=== PATIENT | female | born 1965 | race Caucasian/White ===

== ENCOUNTER 2024-07-03 12:59 | Outpatient (OUT) | payer OTHER, SELFPAY ==
--- NOTE | 2024-07-03 13:12 | ECG_ITS ---
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
[2024-07-03 14:27] LABS: Anion Gap 10.1; BUN Creatinine Ratio 15.9; Carbon Dioxide 30.6 mmol/L (21.0-32.0); Chloride 104 mmol/L (98-107); Estimated GFR (African America >60 (>=60 mL/min/1.73m^2); Estimated GFR (Non-African Ame >60 (>=60 mL/min/1.73m^2); Glucose 187 mg/dL (74-106); Potassium 3.7 mmol/L (3.5-5.1); Sodium 141 mmol/L (136-145)
== END 2024-07-03 13:00 | disposition home or self-care (01) ==
LOC: PST 13:03
PROVIDERS: PCP Internal Medicine; Visit Provider Obstetrics & Gynecology
DX: Z01.810 Encounter for preprocedural cardiovascular examination (principal); Z01.812 Encounter for preprocedural laboratory examination; N95.0 Postmenopausal bleeding; D25.9 Leiomyoma of uterus, unspecified
CPT/HCPCS: 36415; 80048; 93005

== ENCOUNTER 2024-07-17 06:17 | Day surgery (SDC) | payer OTHER, SELFPAY ==
[2024-07-03 13:53] VITALS: BP 138/84; PULSE 89; TEMP 36.6; O2SAT 97; BMI 32.3
--- OUTSIDE RECORDS SUMMARY | 2024-07-17 06:20 | XMS_ITS | CCD ---
Author Organization [facility] Inform ion [facility] Care Team Providers Care Director Clinical Pharmacology Name Role Phone AKIKO VILLA Attending Unavailable AKIKO VILLA Consulting Unavailable AKIKO VILLA Admitting Unavailable Daisy BARBACK-CLAIMS AGENT RIGHT OF WAY, Akiko Dumas Primary Care Provider Michelet BARBACK-GRILL COOKDickson Primary Care Provid er DICKSON TAFOYA Referring Unavailable TAFOYA, DICKSON Reyes Primary Care Unavailable TAFOYADICKSON Referring Unavailable TAFOYA, DICKSON Reyes Primary Care Unavailable CLAU HAWKINS Attending Unavailable TAFOYADICKSON Referring Unavailable TAFOYA, DICKSON Reyes Primary Care Unavailable TAFOYADICKSON Attending Unavailable TAFOYADICKSON Referring Unavailable TAFOYA, DICKSON Reyes Primary Care Unavailable MILTON BRIZUELA Attending Unavailable TAFOYADICKSON Referring Unavailable TAFOYA, DICKSON J Primary Care Unavailable TAFOYA, DICKSON Reyes Attending Unavailable TAFOYA, DICKSON Reyes Referring Unavailable TAFOYA, DICKSON J Primary Care Unavailable TAFOYA, DICKSON Reyes Attending Unavailable ATFOYA, DICKSON J Referring Unavailable TAFOYA, DICKSON Eric Primary Care Unavailable TAFOYA, DICKSON J Referring Unavailable TAFOYA, DICKSON Eric Primary Care Unavailable ARIANNA FLYNN Attending Unavailable DICKSON TAFOYA Referring Unavailable TAFOYADICKSON Primary Care Unavailable Milton Brizuela MD Primary Care Provider TOI VALADEZ Attending Unavailable TOI VALADEZ Attending Unavailable DICKSON NAQVI Referring Unavailable DICKSON NAQVI Attending Unavailable DICKSON NAQVI Referring Unavailable MILTON BRIZUELA Referring Unavailable DICKSON NAQVI Attending Unavailable CLAU DE LA CRUZ Attending Unavailable CLAU DE LA CRUZ Referring Unavailable DICKSON TAFOYA Primary Care Unavailable Medications Current Medications Medication Drug Class(es) Dates Sig (Normalized) Sig (Original) amLODIPine 10 mg oral tablet (20 sources) Dihydropyridine Calcium Channel Mckinley Start: 02-11-2024 take 1 tablet by mouth in the morning amLODIPine (NORVASC) 10 mg tablet Indications: Essential hypertension Take 1 tablet (10 mg total) by mouth in the morning. 90 tablet 1 02/11/2024 Active Start: 10-31-2022 End: 07-23-2023 take 1 tablet by mouth in the morning amLODIPine (NORVASC) 10 mg tablet Take 1 tablet (10 mg total) by mouth in the morning. 90 tablet 1 07/24/2023 Active atorvastatin 40 mg oral tablet (20 sources) HMG-CoA Reductase Inhibitor Start: 12-04-2023 End: 06-08-2024 atorvastatin (LIPITOR) 40 mg tablet Indications: Hyperlipidemia, unspecified hyperlipidemia type TAKE 1 TABLET IN THE MORNING 90 tablet 2 06/08/2024 Active Start: 11-01-2022 End: 09-23-2023 take 1 tablet by mouth in the morning atorvastatin (LIPITOR) 20 mg tablet Indications: Hyperlipidemia, unspecified hyperlipidemia type Take 1 tablet (20 mg total) by mouth in the morning. 90 tablet 1 09/24/2023 Active citalopram 40 mg oral tablet (20 sources) Serotonin Reuptake Inhibitor Start: 01-09-2024 End: 04-21-2024 citalopram (CeleXA) 40 mg tablet Indications: Reactive depression TAKE 1 TABLET IN THE MORNING 90 tablet 1 04/21/2024 Active Start: 06-10-2023 take 1 tablet by dominguez th once daily in the morning citalopram (CeleXA) 20 mg tablet TAKE ONE TABLET BY MOUTH EVERY MORNING 90 tablet 1 06/10/2023 Active Start: 03-13-2023 End: 06-28-2023 take 1 tablet by mouth once daily in the morning citalopram (CeleXA) 40 mg tablet TAKE ONE TABLET BY MOUTH EVERY MORNING 90 tablet 1 06/28/2023 Active dapagliflozin 5 mg oral tablet (13 sources) Sodium-Glucose Cotransporter 2 Inhibitor Start: 03-19-2023 take 1 tablet by mouth in the morning dapagliflozin propanediol (FARXIGA) 5 mg tablet Take 1 tablet (5 mg total) by mouth in the morning. 30 tablet 5 03/19/2023 Active ergocalciferol 1.25 mg oral capsule (20 sources) Provitamin D2 Compound Start: 02-10-2024 take 1 capsule by mouth every week ergocalciferol (Vitamin D2) 1.25 MG (28348 UT) capsule Take 50,000 Units by mouth 1 (one) time per week 02/10/2024 Active Start: 10-31-2022 End: 03-03-2024 take 1 capsule by mouth every week ergocalciferol (DRISDOL) 1,250 mcg (50,000 unit) capsule Indications: Vitamin D deficiency Take 1 capsule (50,000 Units total) by mouth once a week. 12 capsule 3 03/03/2024 Active famotidine 20 mg oral tablet (20 sources) Histamine-2 Receptor Antagonist Start: 02-11-2024 End: 06-08-2024 famotidine (PEPCID) 20 mg tablet TAKE 1 TABLET IN THE MORNING AND 1 TABLET BEFOREBEDTIME 180 tablet 1 06/08/2024 Active Start: 01-30-2023 End: 09-23-2023 take 1 tablet by mouth in the morning, then take 1 tablet by mouth at bedtime famotidine (PEPCID) 20 mg tablet Take 1 tablet (20 mg total) by mouth in the morning and 1 tablet (20 mg total) before bedtime. 180 tablet 1 09/24/2023 Active fexofenadine hydrochloride 180 mg oral tablet (13 sources) Histamine-1 Receptor Antagonist Start: 02-04-2024 take 1 tablet by mouth in the morning fexofenadine (NATHANAEL) 180 mg tablet Indications: Seasonal allergic rhinitis due to pollen , Dysfunction of left eustachian tube Take 1 tablet (180 mg total) by mouth in the morning. 30 tablet 11 02/04/2024 Active fluconazole 150 mg oral tablet (6 sources) Azole Antifungal Start: 05-13-2024 End: 05-20-2024 take 1 tablet by mouth once fluconazole (DIFLUCAN) 150 mg tablet Take 1 tablet (150 mg total) by mouth every third day for 3 doses. 3 tablet 05/13/2024 05/20/2024 Active Start: 04-20-2024 End: 04-23-2024 take 1 tablet by mouth in the morning fluconazole (DIFLUCAN) 150 mg tablet Indications: Yeast vaginitis Take 1 tablet (150 mg total) by mouth in the morning for 3 days. 3 tablet 04/20/2024 04/23/2024 Active Start: 06-25-2023 End: 06-28-2023 take 1 tablet by mouth in the morning fluconazole (DIFLUCAN) 100 mg tablet Take 1 tablet (100 mg total) by mouth in the morning for 3 days. 3 tablet 0 06/25/2023 06/28/2023 Active fluticasone propionate 0.05 mg/actuat metered dose nasal spray (13 sources) Corticosteroid Start: 02-04-2024 take 2 spray(s) nasal route in the morning fluticasone propionate (FLONASE) 50 mcg/actuation nasal spray Indications: Seasonal allergic rhinitis due to pollen , Dysfunction of left eustachian tube Administer 2 sprays into each nostril in the morning. 16 g 11 02/04/2024 Active 3 ml insulin degludec 200 unt/ml pen injector (20 sources) Insulin Analog Start: 08-29-2022 insulin deglud ec (TRESIBA) 200 unit/mL (3 mL) insulin pen Inject 38 Units under the skin in the morning. 9 mL 1 08/29/2022 Active insulin degludec (Tresiba FlexTouch) 100 UNIT/ML injection Inject 38 Units under the skin at bedtime Active levothyroxine sodium 0.15 mg oral tablet (20 sources) l-Thyroxine Start: 11-12-2023 End: 04-21-2024 SYNTHROID 150 mcg tablet Indications: Acquired hypothyroidism TAKE 1 TABLET EVERY MORNING 90 tablet 1 04/21/2024 Active Start: 07-24-2023 take 1 tablet by dominguez th in the morning levothyroxine (SYNTHROID, LEVOTHROID) 150 MCG tablet Take 1 tablet (150 mcg total) by mouth in the morning. 45 tablet 1 07/24/2023 Active Start: 05-06-2023 End: 07-23-2023 take 0.5 tablet by mouth once daily levothyroxine (SYNTHROID, LEVOTHROID) 150 MCG tablet TAKE 1/2 TABLET BY MOUTH DAILY 45 tablet 1 05/06/2023 07/23/2023 Discontinued (Reorder) losartan potassium 100 mg oral tablet (20 sources) Angiotensin 2 Receptor Mckinley Start: 02-11-2024 take 1 tablet by mouth in the morning losartan (COZAAR) 100 mg tablet Indications: Essential hypertension Take 1 tablet (100 mg total) by mouth in the morning. 90 tablet 1 02/11/2024 Active Start: 05-06-2023 End: 07-23-2023 take 1 tablet by mouth in the morning losartan (COZAAR) 100 mg tablet Take 1 tablet (100 mg total) by mouth in the morning. 90 tablet 1 07/24/2023 Active meloxicam 15 mg oral tablet (20 sources) Nonsteroidal Anti-inflammatory Drug Start: 12-18-2023 End: 04-21-2024 meloxicam (MOBIC) 15 mg tablet TAKE 1 TABLET EVERY MORNING 90 tablet 1 04/21/2024 Active Start: 04-27-2023 End: 09-04-2023 take 1 tablet by mouth in the morning meloxicam (MOBIC) 15 mg tablet Take 1 tablet (15 mg total) by mouth in the morning. 90 tablet 1 09/05/2023 Active metFORMIN hydrochloride 1000 mg oral tablet (20 sources) Biguanide Start: 03-26-2023 End: 05-05-2024 take 1 tablet by mouth in the morning, then take 1 tablet by mouth at mealtime metFORMIN (GLUCOPHAGE) 1000 mg tablet Indications: Type 2 diabetes mellitus without complication, with long-term current use of insulin ([facility]) Take 1 tablet (1,000 mg total) by mouth in the morning and 1 tablet (1,000 mg total) in the evening. Take with meals. 60 tablet 05/05/2024 Active nystatin [id number] unt/ml / triamcinolone acetonide 1 mg/ml topical cream (14 sources) Polyene Antifungal, Corticosteroid Start: 05-16-2022 End: 03-03-2024 nystatin-triamcino lone (MYCOLOG II) cream Apply 1 application topically in the morning and 1 application before bedtime. 30 g 05/16/2022 03/03/2024 Discontinued (Therapy completed) phentermine hydrochloride 37.5 mg oral tablet (20 sources) Sympathomimetic Amine Anorectic Start: 12-03-2023 End: 03-03-2024 take 31-31.9 tablets by mouth once daily before breakfast phentermine (ADIPEX-P) 37.5 mg tablet Indications: Class 1 obesity due to excess calories without serious comorbidity with body mass index (BMI) of 31.0 to 31.9 in adult Take 1 tablet (37.5 mg total) by mouth every morning before breakfast. 30 tablet 12/03/2023 03/03/2024 Discontinued (Therapy completed) Start: 05-07-2023 End: 06-10-2023 take 31-31.9 tablets by mouth once daily before breakfast phentermine (ADIPEX-P) 37.5 mg tablet Indications: Class 1 obesity due to excess calories with serious comorbidity and body mass index (BMI) of 31.0 to 31.9 in adult TAKE ONE TABLET BY MOUTH EVERY MORNING BEFORE BREAKFAST 30 tablet 0 06/10/2023 Active 72 hr scopolamine 0.0139 mg/hr transdermal system (14 sources) Anticholinergic Start: 10-22-2023 End: 03-03-2024 apply 1 dose transdermal route once daily scopolamine (TRANSDERM-SCOP) 1 mg/3 days Indications: Motion sickness, subsequent encounter Place 1 patch on the skin every third day. 4 patch 1 10/22/2023 03/03/2024 Discontinued (Therapy completed) Start: 02-21-2022 apply 1 dose transde rmal route once daily scopolamine (TRANSDERM-SCOP) 1 mg/3 days Indications: Motion sickness, subsequent encounter Place 1 patch on the skin every third day. 4 patch 1 02/21/2022 Active semaglutide (OZEMPIC) 0.25 m g or 0.5 mg (2 mg/3 mL) pen injector (4 sources) Start: 12-24-2023 End: 04-20-2024 semaglutide (OZEMPIC) 0.25 m g or 0.5 mg (2 mg/3 mL) pen injector Indications: Type 2 diabetes mellitus without complication, with long-term current use of insulin ([facility]) Inject 0.5 mg under the skin every 7 days. 3 mL 12/24/2023 04/20/2024 Discontinued (Therapy completed) Start: 12-24-2023 semaglutide (O ZEMPIC) 0.25 mg or 0.5 mg (2 mg/3 mL) pen injector Indications: Type 2 diabetes mellitus without complication, with long-term current use of insulin ([facility]) Inject 0.5 mg under the skin every 7 days. 3 mL 12/24/2023 Active semaglutide (OZEMPIC) 1 mg/d ose (4 mg/3 mL) pen injector (10 sources) Start: 04-20-2024 semaglutide (O ZEMPIC) 1 mg/dose (4 mg/3 mL) pen injector Indications: Type 2 diabetes mellitus without complication, with long-term current use of insulin ([facility]) Inject 1 mg under the skin every 7 days. 3 mL 04/20/2024 Active semaglutide (OZEMPIC) 2 mg/d ose (8 mg/3 mL) pen injector (14 sources) Start: 07-01-2023 semaglutide (O ZEMPIC) 2 mg/dose (8 mg/3 mL) pen injector Indications: Type 2 diabetes mellitus without complication, with long-term current use of insulin ([facility]) Inject 2 mg under the skin every 7 days. 12 mL 3 07/01/2023 Active Start: 06-25-2023 semaglutide (O ZEMPIC) 2 mg/dose (8 mg/3 mL) pen injector Indications: Type 2 diabetes mellitus without complication, with long-term current use of insulin ([facility]) Inject 2 mg under the skin every 7 days. 3 mL 2 06/25/2023 Active Start: 03-19-2023 End: 06-25-2023 semaglutide (OZEMPIC) 2 mg/d ose (8 mg/3 mL) pen injector Inject 2 mg under the skin every 7 days. 0 03/19/2023 06/25/2023 Discontinued (Formulary change) Start: 03-19-2023 semaglutide (O ZEMPIC) 2 mg/dose (8 mg/3 mL) pen injector Inject 2 mg under the skin every 7 days. 0 03/19/2023 Active Semaglutide,0.25 or 0.5MG/DO S, (Ozempic, 0.25 or 0.5 MG/DOSE,) 2 MG/3ML solution pen-injector (10 sources) Start: 12-24-2023 Semaglutide,0. 25 or 0.5MG/DOS, (Ozempic, 0.25 or 0.5 MG/DOSE,) 2 MG/3ML solution pen-injector Inject 0.5 mg under the skin once a week 12/24/2023 Active Completed/Discontinued Medications Medication Drug Class(es) Dates Sig (Normalized) Sig (Original) WEGOVY 2.4 mg/0.75 mL pen injector (5 sources) Start: 04-15-2023 End: 06-25-2023 inject 0.75 mL by subcutaneous injection every week WEGOVY 2.4 mg/0.75 mL pen injector Inject 0.75 mL (2.4 mg total) under the skin once a week. 0 04/15/2023 06/25/2023 Discontinued (Formulary change) Start: 04-15-2023 inject 0.75 mL by crabtree bcutaneous injection every week WEGOVY 2.4 mg/0.75 mL pen injector Inject 0.75 mL (2.4 mg total) under the skin once a week. 0 04/15/2023 Active Problems Active Problems Problem Classification Problem Date Documented Date Episodic/Chronic Diabetes mellitus without complication (20 sources) Diabetes mellitus; Translations: [Type 2 diabetes mellitus without complications] Onset: 07-16-2022 07-16-2022 Chronic Disorders of lipid metabolism (20 sources) Hyperlipidemia; Translations: [Hyperlipidemia, unspecified] 07-16-2022 Chronic Essential hypertension (20 sources) Essential hypertension; Translations: [Essential (primary) hypertension] 07-16-2022 Chronic Immunizations and screening for infectious disease (4 sources) Contact with and (suspected) exposure to other viral communicable diseases; Translations: [CONTCT EXPS OTH VIRL COMMUNICABL DZ] Onset: 05-09-2020 Episodic Menopausal disorders (6 sources) Postmenopausal bleeding; Translations: [Postmenopausal bleeding] 04-07-2024 Chronic Mood disorders (20 sources) Reactive depression (situational); Translations: [Major depressive disorder, single episode, unspecified] Onset: 05-11-2022 05-11-2022 Chronic Mycoses (2 sources) Candidiasis of vagina; Translations: [Yeast vaginitis] 06-25-2023 Episodic Nutritional deficiencies (20 sources) Vitamin D deficiency; Translations: [Vitamin D deficiency, unspecified] Onset: 03-03-2024 07-16-2022 Chronic Other and unspecified benign neoplasm (2 sources) Leiomyoma; Translations: [Benign neoplasm of connective and other soft tissue, unspecified] 04-07-2024 Episodic Other ear and sense organ disorders (1 source) Unspecified hearing loss, right ear; Translations: [Unspecified hearing loss, right ear] Onset: 02-04-2024 Chronic Other ear and sense organ disorders (2 sources) Mixed conductive and sensorineural hearing loss, unilateral, left ear with restricted hearing on the contralateral side; Translations: [Mixed conductive and sensorineural hearing loss, unilateral, left ear with restricted hearing on the contralateral side] Onset: 02-04-2024 Chronic Other ear and sense organ disorders (1 source) Hearing loss Onset: 02-04-2024 Chronic Other ear and sense organ disorders (1 source) Mixed conductive AND sensorineural hearing loss; Translations: [Mixed conductive and sensorineural hearing loss, unilateral, left ear with restricted hearing on the contralateral side] 03-31-2024 Chronic Other ear and sense organ disorders (1 source) Ear problem Onset: 02-04-2024 Episodic Other ear and sense organ disorders (2 sources) Ear sensations - finding; Translations: [Other specified disorders of ear, bilateral] 03-31-2024 Episodic Other ear and sense organ disorders (1 source) Other specified disorders of ear, bilateral; Translations: [Other specified disorders of ear, bilateral] Onset: 03-31-2024 Episodic Other nutritional; endocrine; and metabolic disorders (1 source) Other obesity due to excess calories; Translations: [Other obesity due to excess calories] Onset: 11-12-2023 Chronic Other nutritional; endocrine; and metabolic disorders (1 source) Body mass index (BMI) 31.0-31.9, adult; Translations: [Body mass index (BMI) 31.0-31.9, adult] Onset: 11-12-2023 Chronic Other nutritional; endocrine; and metabolic disorders (1 source) Obesity caused by energy imbalance; Translations: [Other obesity due to excess calories] 06-04-2023 Chronic Other screening for suspected conditions (not mental disorders or infectious disease) (3 sources) Encounter for screening for osteoporosis; Translations: [Abnormal electrocardiogram [ECG] [EKG]] Onset: 11-22-2023 07-14-2024 Episodic Other upper respiratory disease (2 sources) Allergic rhinitis due to pollen; Translations: [Allergic rhinitis due to pollen] Onset: 02-04-2024 Chronic Other upper respiratory disease (1 source) Allergic rhinitis due to pollen; Translations: [Allergic rhinitis due to pollen] 03-31-2024 Chronic Otitis media and related conditions (6 sources) Unspecified Eustachian tube disorder, left ear; Translations: [Disorder of left Eustachian tube] Onset: 02-04-2024 03-31-2024 Episodic Prolapse of female genital organs (2 sources) Uterine prolapse; Translations: [Uterovaginal prolapse, unspecified] 04-07-2024 Chronic Thyroid disorders (3 sources) Acquired hypothyroidism; Translations: [Hypothyroidism, unspecified] Onset: 11-12-2023 03-03-2024 Chronic Thyroid disorders (20 sources) Disorder of thyroid gland; Translations: [Disorder of thyroid, unspecified] 07-16-2022 Episodic Unclassified (1 source) Eustachian tube dysfunction Onset: 03-31-2024 Unclassified (1 source) Weight Check Onset: 12-03-2023 Past or Other Problems Problem Classification Problem Date Documented Da te Episodic/Chronic Mood disorders (20 sources) Mood disorders Onset: 03-18-2023 Resolved: 03-03-2024 03-18-2023 Other aftercare (2 sources) terminal gauger supervisor (current) use of insulin; Translations: [terminal gauger supervisor (current) use of insulin] Onset: 07-16-2022 Episodic Residual codes; unclassified (1 source) Asymptomatic menopausal state; Translations: [Asymptomatic menopausal state] Onset: 11-22-2023 Episodic Unclassified (20 sources) Onset: 03-18-2023 Resolved: 03-03-2024 03-18-2023 Results Test Name Value Interpretation Reference Range Facility ALL BASIC METABOLIC PANELon 07-03-2024 Anion gap [Moles/Vol] 10.1 mmol/L [facility] Calcium [Mass/Vol] 9 mg/dL 8.5 - 10. 1 mg/dL [facility] Chloride [Moles/Vol] 104 mmol/L 98 - 10 7 mmol/L [facility] CO2 [Moles/Vol] 30.6 mmol/L 21.0 - 32.0 mmol/L [facility] Creatinine [Mass/Vol] 0.88 mg/dL 0.55 - 1.02 mg/dL [facility] GFR/1.73 sq M.predicted CKD-EPI (S/P/Bld) [Vol rate/Area] >60 >=60 mL/min/1.73m 2 [facility] Glucose [Mass/Vol] 187 mg/dL High 74 - 106 mg/dL [facility] Interpretation and review of laboratory results Abnormal [facility] Potassium [Moles/Vol] 3.7 mmol/L 3.5 - 5.1 mmol/L [facility] Sodium [Moles/Vol] 141 mmol/L 136 - 145 mmol/L [facility] TBH EGFR-NON AF MALAWIAN >60 >=60 mL/min/1.73m 2 [facility] Urea nitrogen [Mass/Vol] 14 mg/dL 7.0 - 18.0 mg/dL [facility] Urea nitrogen/Creatinine [Mass ratio] 15.9 mg/mg [facility] ECG 12-LEADon 07-03-2024 [place] [address] Electrocardiograph Report Signed Patient: DANNY AHMADI MR#: [id number] : 1965 Acct:[id number] Age/Sex: 58 / F ADM Date: 07/03/24 Loc: [facility] Attending Dr: Toi Valadez D.O. Ordering Physician: Toi Valadez D.O. Date of Service: 07/03/24 Procedure(s): ECG 12 lead Accession Number(s): [id number] cc: [facility] Test Date: 2024-07-03 Pat Name: DANNY AHMADI Department: Room: - Gender: Female Spring Tester: : 1965 Requested By: CLAU DE LA CRUZ Order Number: [id number] Reading MD: JERRELL MIGUEL Measurements Intervals Harold Rate: 88 P: 56 HI: 211 QRS: -29 QRSD: 111 T: 64 QT: 396 QTc: 480 Interpretive Statements SINUS RHYTHM WITH FIRST DEGREE AV BLOCK MODERATE VOLTAGE CRITERIA FOR LVH, CONSIDER NORMAL VARIANT [MEETS CRITERIA IN ONE OF: R(aVL), S(V1), R(V5), R(V5/V6)+S(V1)] POSSIBLE SEPTAL MYOCARDIAL INFARCTION [30 ms Q WAVE IN V1/V2], PROBABLY OLD No previous ECG available for comparison Electronically Signed On 07-03-2024 18:16:53 EST by JERRELL MIGUEL Dictated By: Jerrell Miguel D.O. Signed By: 07/03/241816 DD/ 58 TD/TT: Heat And [employer] Insulator Helper: [facility] Radiology, Radiologist, - 07/03/2024 [place] [address] Electrocardiograph Report Signed Patient: DANNY AHMADI MR#: [id number] : 1965 Acct:[id number] Age/Sex: 58 / F ADM Date: 07/03/24 Loc: PST Attending Dr: Toi Valadez D.O. Ordering Physician: Toi Valadez D.O. Date of Service: 07/03/24 Procedure(s): ECG 12 lead Accession Number(s): [id number] cc: [facility] Test Date: 2024-07-03 Pat Name: DANNY AHMADI Department: Room: - Gender: Female Spring Tester: : 1965 Requested By: CLAU DE LA CRUZ Order Number: [id number] Reading MD: JERRELL MIGUEL Measurements Intervals Harold Rate: 88 P: 56 HI: 211 QRS: -29 QRSD: 111 T: 64 QT: 396 QTc: 480 Interpretive Statements SINUS RHYTHM WITH FIRST DEGREE AV BLOCK MODERATE VOLTAGE CRITERIA FOR LVH, CONSIDER NORMAL VARIANT [MEETS CRITERIA IN ONE OF: R(aVL), S(V1), R(V5), R(V5/V6)+S(V1)] POSSIBLE SEPTAL MYOCARDIAL INFARCTION [30 ms Q WAVE IN V1/V2], PROBABLY OLD No previous ECG available for comparison Electronically Signed On 07-03-2024 18:16:53 EST by JERRELL MIGUEL Dictated By: Jerrell Miguel D.O. Signed By: 07/03/241816 DD/ 58 TD/TT: [employer] Insulator Helper: [facility] Radiology Study observation (narrative) [facility] ECG 12-LEADOrdered By: Radio logist Radiology on 07-03-2024 [facility] [employer] Work Phone: Cytology Cervical or vaginal smear or scraping studyOrdered By: Fern Das on 04-08-2024 [facility] US PELVIS TRANSVAGINALon US PELVIS TRANSVAGINAL EXAM: Pelvic Ultrasound, Transvaginal. REASON FOR EXAM: PMB. TECHNIQUE: An endovaginal exam was performed, including color Doppler. FINDINGS: Myometrium: An isoechoic mass at the uterine fundus measures 2.3 x 1.8 x 1.4 cm. Endometrium: Normal thickness and echogenicity without fluid. Cervix: Unremarkable. Cul-de-sac: Trace free fluid present. Right Ovary: Obscured by overlying bowel gas. Left Ovary: Obscured by overlying bowel gas. Measurements: Uterus: 7.63 x 5.25 x 3.22 cm Right Ovary: Obscured Left Ovary: Obscured IMPRESSION, Endovaginal Pelvic Ultrasound: Myometrial fibroid of the uterus. Ovaries obscured. *This report is generated using voice recognition reporting ([employer]). On occasion Fredioe erroneously drops words from the report or replaces the spoken word with similar sounding words. Please call with any questions/concerns regarding this report.* Dictated and transcribed 04/08/24/dpd This report has been electronically signed and approved by the interpreting radiologist. Normal Not Available POCT Hemoglobin A1con 2023 HbA1c (Bld) [Mass fraction] 7.2 % Abnormal 4 - 7 % [employer] Interpretation and review of laboratory results Abnormal [facility] BI MAMMOGRAM SCREENING TOMOS YNTHESIS BILATERALon 11-22-2023 BI MAMMOGRAM SCREENING TOMOSYNTHESIS BILATERAL This is a summary report. The complete report is available in the patient's medical record. If you cannot access the medical record, please contact the sending organization for a detailed fax or copy. EXAMINATION: BI MAMMOGRAM SCREENING TOMOSYNTHESIS BILATERAL CLINICAL HISTORY:Routine screening COMPARISON: January 26, 2022 RESULT: Density: Scattered fibroglandular density [2] There is no suspicious mass, asymmetry, architectural distortion, or calcification. Typically benign calcifications. Overall appearance stable. IMPRESSION: BIRADS 2 - Benign Follow-up: Routine Screening Mamm Board Certified Radiologists. Accredited by the ACR and FDA. MAMMOGRAPHY IS VERY IMPORTANT TO YOUR HEALTH. THE [employer] GUIDELINES RECOMMEND THAT WOMEN 40 YEARS OF AGE AND OLDER SHOULD HAVE A MAMMOGRAM EVERY YEAR. A REMINDER LETTER WILL BE SENT AT THE APPROPRIATE TIME. THIS FACILITY UTILIZES A REMINDER SYSTEM TO ENSURE ALL PATIENTS RECEIVE REMINDER NOTIFICATIONS AT THE APPROPRIATE TIME BASED ON THE RECOMMENDATIONS OF THIS EXAM. THIS INCLUDES REMINDERS FOR ROUTINE SCREENING MAMMOGRAMS, DIAGNOSTIC MAMMOGRAMS IN WHICH THE PATIENT IS ASKED TO RETURN FOR ADDITIONAL VIEWS, OR OTHER BREAST IMAGING INTERVENTIONS WHEN APPROPRIATE. THE PATIENT WILL BE PLACED IN THE APPROPRIATE REMINDER SYSTEM INCLUDING A REMINDER AT THE APPROPRIATE TIME FOR ANY PENDING ADDITIONAL VIEWS. TRANSCRIBED BY: ELECTRONICALLY SIGNED BY: Elie Lackey MD Normal Not Available CBC AND AUTO DIFFon 11-12-19 24 ABSOLUTE BASOPHIL 0.0 X10E9/L Normal 0.0-0.2 [facility] Comment on above: Performed By: #### C MATEO LEONARD, 89917-5, 3016-3 #### [facility] ([id number]) [address] [address] ABSOLUTE NEUTROPHIL 3.6 X10E9/L Normal 1.5-6.6 [facility] Comment on above: Performed By: #### C MATEO LEONARD, 06660-0, 6-3 #### [facility] ([id number]) [address] [address] [place] [address] Basophils/100 WBC (Bld) 0.5 % Normal [facility] Comment on above: Performed By: #### C MATEO LEONARD, 87195-8, 6-3 #### [facility] ([id number]) [address], [address] [place] [address] Eosinophils (Bld) [#/Vol] 0.2 10*3/uL Normal 0.0-0.4 [facility] Comment on above: Performed By: #### C BCA CMP, 54928-5, 3016-3 #### [facility] ([id number]) [address] [address] Eosinophils/100 WBC (Bld) 3.0 % Normal [facility] Comment on above: Performed By: #### C BCA CMP, 93609-4, 6-3 #### [facility] ([id number]) [address], [address] [place] [address] Erythrocyte distribution width (RBC) [Ratio] 13.7 % Normal 11.5-15.0 [facility] Comment on above: Performed By: #### C AISHA CMP, 84673-0, 3015-3 #### [facility] ([id number]) [address], [address] [place] [address] Hematocrit (Bld) [Volume fraction] 40.0 % Normal 35-47 [facility] Comment on above: Performed By: #### C AISHA, CMP, 11138-4, 3015-3 #### [facility] ([id number]) [address], [address] [place] [address] Hemoglobin (Bld) [Mass/Vol] 13.6 g/dL Normal 11.7-15.5 [facility] Comment on above: Performed By: #### C BCA, CMP, 96434-3, 3 #### [facility] ([id number]) [address], [address] [place] [address] Lymphocytes (Bld) [#/Vol] 2.3 10*3/uL Normal 1.0-3.5 [facility] Comment on above: Performed By: #### C AISHA CMP, 44021-9, 3015-3 #### [facility] ([id number]) [address], [address] [place] [address] Lymphocytes/100 WBC (Bld) 35.5 % Normal [facility] Comment on above: Performed By: #### C BCA, CMP, 81140-0, 3015-3 #### [facility] ([id number]) [address], [address] [place] [address] MCH (RBC) [Entitic mass] 30.5 pg Normal 27-34 [facility] Comment on above: Performed By: #### C AISHA, CMP, 15774-8, 3 #### [facility] ([id number]) [address], [address] [place] [address] MCHC (RBC) [Mass/Vol] 34.1 g/dL Normal 32-36 [facility] Comment on above: Performed By: #### C BCA, CMP, 33392-4, 3015-3 #### [facility] ([id number]) [address], [address] [place] [address] MCV (RBC) [Entitic vol] 89 fL Normal 80-100 [facility] Comment on above: Performed By: #### C BCA, CMP, 24095-3, 3015- #### [facility] ([id number]) [address], [address] [place] [address] Monocytes (Bld) [#/Vol] 0.4 10*3/uL Normal 0-0.9 [facility] Comment on above: Performed By: #### C BCA, CMP, 05075-5, 3015-08 #### [facility] ([id number]) [address], [address] [place] [address] Monocytes/100 WBC (Bld) 5.9 % Normal [facility] Comment on above: Performed By: #### C BCA, CMP, 55146-8, 3015-3 #### [facility] ([id number]) [address], [address] [place] [address] Neutrophils/100 WBC (Bld) 55.1 % Normal [facility] Comment on above: Performed By: #### C BCA, CMP, 40092-6, 3015-3 #### [facility] ([id number]) [address], [address] [place] [address] Platelet mean volume (Bld) [Entitic vol] 9.5 fL Normal 7-12 [facility] Comment on above: Performed By: #### C BCA, CMP, 88689-4, 3015-3 #### [facility] ([id number]) [address], [address] [place] [address] Platelets (Bld) [#/Vol] 234 10*3/uL Normal 150-450 [facility] Comment on above: Performed By: #### C BCA, CMP, 90702-6, 6-3 #### [facility] ([id number]) [address], [address] [place] [address] RBC COUNT 4.48 X10E12/L Normal 3.80-5.20 [facility] Comment on above: Performed By: #### C BCA, CMP, 14928-9, 3015-3 #### [facility] ([id number]) [address], [address] [place] [address] WBC (Bld) [#/Vol] 6.6 10*3/uL Normal 4.0-11.0 [facility] Comment on above: Performed By: #### C BCA, CMP, 64228-8, 3015-3 #### [facility] ([id number]) [address], [address] [place] [address] COMPREHENSIVE METABOLIC PANE Abel 11-12-2023 Albumin [Mass/Vol] 4.4 g/dL Normal 3.2-5.3 [facility] Comment on above: Performed By: #### C BCA, CMP, 30874-7, 3015-3 #### [facility] ([id number]) [address], [address] [place] [address] ALP [Catalytic activity/Vol] 80 U/L Normal 39-130 [facility] Comment on above: Performed By: #### C BCA, CMP, 28091-5, 6-3 #### [facility] ([id number]) [address], [address] [place] [address] ALT [Catalytic activity/Vol] 52 U/L High 0-31 [facility] Comment on above: Performed By: #### C BCA, CMP, 18605-9, 3015-3 #### [facility] ([id number]) [address], [address] [place] [address] Anion gap [Moles/Vol] 8 mmol/L Normal 5-15 [facility] Comment on above: Performed By: #### C BCA, CMP, 11338-1, 3015-3 #### [facility] ([id number]) [address], [address] [place] [address] AST [Catalytic activity/Vol] 49 U/L High 0-41 [facility] Comment on above: Performed By: #### C BCA, CMP, 60034-5, 3015- #### [facility] ([id number]) [address], [address] [place] [address] Bilirubin [Mass/Vol] 0.6 mg/dL Normal 0.3-1.2 [facility] Comment on above: Performed By: #### C AISHA, CMP, , 3015- #### [facility] ([id number]) [address], [address] [place] [address] Calcium [Mass/Vol] 9.8 mg/dL Normal 8.5-10.5 [facility] Comment on above: Performed By: #### C BCA, CMP, 30316-1, 3015- #### [facility] ([id number]) [address], [address] [place] [address] Chloride [Moles/Vol] 105 mmol/L Normal 98-109 [facility] Comment on above: Performed By: #### C BCA, CMP, 20817-8, 3015-3 #### [facility] ([id number]) [address], [address] [place] [address] CO2 [Moles/Vol] 29 mmol/L Normal 22-32 [facility] Comment on above: Performed By: #### C BCA, CMP, 02862-5, 6-3 #### [facility] ([id number]) [address], [address] [place] [address] Creatinine [Mass/Vol] 0.72 mg/dL Normal 0.40-1.00 [facility] Comment on above: Result Comment: METH OD TRACEABLE TO IDMS STANDARD Performed By: #### C AISHA, CMP, 31103-9, 3015-3 #### [facility] ([id number]) [address], [facility] [address] [place] [address] eGFR (CKD-EPI) NON-RACE DEPENDENT >90 Normal >59 [facility] Comment on above: Result Comment: Reported eGFR is based on the CKD-EPI 2020 equation that does not use a race coefficient. Performed By: #### C BCA, CMP, 46123-4, 3015-3 #### [facility] ([id number]) [address], [address] [place] [address] Glucose [Mass/Vol] 124 mg/dL High 65-99 [facility] Comment on above: Performed By: #### C BCA, CMP, 08291-0, 3015-3 #### [facility] ([id number]) [address], [facility] [address] [place] [address] Potassium [Moles/Vol] 4.3 mmol/L Normal 3.5-5.0 [facility] Comment on above: Performed By: #### C BCA, CMP, 44953-2, 3015-3 #### [facility] ([id number]) [address], [facility] [address] [place] [address] Protein [Mass/Vol] 7.9 g/dL Normal 6.0-8.0 [facility] Comment on above: Performed By: #### C BCA, CMP, 08726-8, 6-3 #### [facility] ([id number]) [address], [address] [place] [address] Sodium [Moles/Vol] 142 mmol/L Normal 134-146 [facility] Comment on above: Performed By: #### Benny LEONARD, CMP, 07934-3, 3016-3 #### [facility] ([id number]) [address], [address] [place] [address] Urea nitrogen [Mass/Vol] 14 mg/dL Normal 5-23 [facility] Comment on above: Performed By: #### Benny LEONARD, CMP, 34554-4, 3016-3 #### [facility] ([id number]) [address], [address] [place] [address] Lipid 1996 panelon 4 Cholesterol [Mass/Vol] 149 mg/dL Low 150-200 [facility] Comment on above: Performed By: #### Benny LEONARD, CMP, 90708-8, 3016-3 #### [facility] ([id number]) [address], [address] [place] [address] Cholesterol in HDL [Mass/Vol] 30 mg/dL Low >39 [facility] Comment on above: Result Comment: HDL <40 mg/dL - High Risk HDL > or = 40mg/dL- Desirable HDL >60 mg/dL - Negative Risk Performed By: #### Benny BCA, CMP, 62910-1, 3016-3 #### [facility] ([id number]) [address], [address] [place] [address] Cholesterol in LDL [Mass/Vol] 75 mg/dL Normal <130 [facility] Comment on above: Result Comment: LDL <100 mg/dL - Desirable LDL >160 mg/dL - High Risk Performed By: #### C BCA, CMP, 02881-3, 3016-3 #### [facility] ([id number]) [address], [address] [place] [address] Cholesterol in VLDL [Mass/Vol] 44 mg/dL High 0-30 [facility] Comment on above: Performed By: #### C BCA, CMP, 97654-8, 3016-3 #### [facility] ([id number]) [address], [address] [place] [address] CHOLESTEROL:HDL 5.0 Normal 1.0-5.0 [facility] Comment on above: Performed By: #### C BCA, CMP, 99526-1, 6-3 #### [facility] ([id number]) [address], [address] [place] [address] Triglyceride [Mass/Vol] 219 mg/dL High 27-150 [facility] Comment on above: Performed By: #### C BCA, CMP, 43852-3, 6-3 #### [facility] ([id number]) [address], [address] [address] MICROALBUMIN - ALBUMIN:CREAT ININE URINE RATIOon 11-12-2023 ALB/CREAT RATIO 13.8 mg/g creat Normal 0.0-30.0 [facility] Comment on above: Performed By: #### M ALBU #### [facility] ([id number]) [address], [address] [place] [address] Albumin DL <= 20 mg/L (U) [Mass/Vol] 1.0 mg/dL Normal 0.0-1.9 [facility] Comment on above: Performed By: #### M ALBU #### [facility] ([id number]) [address], [address] [place] [address] URINE CREAT 72.50 mg/dL Normal [facility] Comment on above: Performed By: #### M ALBU #### [facility] ([id number]) [address], [address] [place] [address] TSH Qnon 11-12-2023 TSH 1.07 uIU/mL Normal 0.49-4.67 [facility] Comment on above: Performed By: #### C BCA, CMP, 69598-7, 3016-3 #### [facility] ([id number]) [address] [facility], [address] [place] [address] COMPREHENSIVE METABOLIC PANE Abel 01-27-2022 Albumin [Mass/Vol] 4.3 g/dL Normal 3.6-5.1 [facility] Comment on above: Performed By: #### 5 8984, 7600, 85584, 496 #### [facility] [place] [address] [employer] Physician: Deonte Ott MD Albumin/Globulin [Mass ratio] 1.3 {ratio} Normal 1.0-2.5 [facility] Comment on above: Performed By: #### 5 8984, 7600, 04654, 496 #### [facility] [place] [address] [employer] Physician: Deonte Ott MD ALP [Catalytic activity/Vol] 68 U/L Normal 37-153 [facility] Comment on above: Performed By: #### 5 8984, 7600, 71274, 496 #### [facility] [place] [address] [employer] Physician: Deonte Ott MD ALT [Catalytic activity/Vol] 31 U/L High 6-29 [facility] Comment on above: Performed By: #### 5 8984, 7600, 68026, 496 #### [facility] [place] [address] [employer] Physician: Deonte Ott MD AST [Catalytic activity/Vol] 34 U/L Normal 10-35 [facility] Comment on above: Performed By: #### 5 8984, 7600, 91844, 496 #### [facility] of [place] [address] [employer] Physician: Deonte Ott MD Bilirubin [Mass/Vol] 0.5 mg/dL Normal 0.2-1.2 [facility] Comment on above: Performed By: #### 5 8984, 7600, 90420, 496 #### [facility] of [address], [address] [place] [address] [employer] Physician: Deonte Ott MD BUN/CREATININE RATIO NOT APPLICABLE Normal 6-22 [facility] Comment on above: Performed By: #### 5 8984, 7600, 25483, 496 #### [facility] of [place] [address] [employer] Physician: Deonte Ott MD Calcium [Mass/Vol] 9.9 mg/dL Normal 8.6-10.4 [facility] Comment on above: Performed By: #### 5 8984, 7600, 79162, 496 #### [facility] [place] [address] [employer] Physician: Deonte Ott MD Chloride [Moles/Vol] 102 mmol/L Normal 98-110 [facility] Comment on above: Performed By: #### 5 8984, 7600, 50694, 496 #### [facility] of [place] [address] [employer] Physician: Deonte Ott MD CO2 [Moles/Vol] 31 mmol/L Normal 20-32 [facility] Comment on above: Performed By: #### 5 8984, 7600, 20594, 496 #### [facility] of [place] [address] [employer] Physician: Deonte Ott MD Creatinine [Mass/Vol] 0.63 mg/dL Normal 0.50-1.03 [facility] Comment on above: Performed By: #### 5 8984, 7600, 01740, 496 #### [facility] [place] [address] [employer] Physician: Deonte Ott MD GFR/1.73 sq M.predicted among non-blacks MDRD (S/P/Bld) [Vol rate/Area] 105 mL/min/{1.73_m2} Normal > OR = 60 [facility] Comment on above: Result Comment: The eGFR is based on the CKD-EPI 2020 equation. To calculate the new eGFR from a previous Creatinine or Cystatin C result, go to https://www.kidney.org/professionals/ kdoqi/gfr%5Fcalculator Performed By: #### 5 8984, 7600, 94193, 496 #### [facility] [place] [address] [employer] Physician: Deonte Ott MD Globulin (S) [Mass/Vol] 3.2 g/dL Normal 1.9-3.7 [facility] Comment on above: Performed By: #### 5 8984, 7600, 19379, 496 #### [facility] [place] [address] [employer] Physician: Deonte Ott MD Glucose [Mass/Vol] 139 mg/dL High 65-99 [facility] Comment on above: Result Comment: Fasting reference interval For someone without known diabetes, a glucose value >125 mg/dL indicates that they may have diabetes and this should be confirmed with a follow-up test. Performed By: #### 5 8984, 7600, 28662, 496 #### [facility] [place] [address] [employer] Physician: Deonte Ott MD Potassium [Moles/Vol] 4.6 mmol/L Normal 3.5-5.3 [facility] Comment on above: Performed By: #### 5 8984, 7600, 70844, 496 #### [facility] [place] [address] [employer] Physician: Deonte Ott MD Protein [Mass/Vol] 7.5 g/dL Normal 6.1-8.1 [facility] Comment on above: Performed By: #### 5 8984, 7600, 07223, 496 #### [facility] [address], [address] [place] [address] [employer] Physician: Doente Ott MD Sodium [Moles/Vol] 139 mmol/L Normal 135-146 [facility] Comment on above: Performed By: #### 5 8984, 7600, 44781, 496 #### [facility] [address], [address] [place] [address] [employer] Physician: Deonte Ott MD Urea nitrogen [Mass/Vol] 11 mg/dL Normal 7-25 [facility] Comment on above: Performed By: #### 5 8984, 7600, 63365, 496 #### [facility] [address], [address] [place] [address] [employer] Physician: Deonte Ott MD HEMOGLOBIN A1con 01-27-2022 HEMOGLOBIN A1c 7.1 % of total Hgb High <5.7 [facility] Comment on above: Result Comment: For someone without known diabetes, a hemoglobin A1c value of 6.5% or greater indicates that they may have diabetes and this should be confirmed with a follow-up test. For someone with known diabetes, a value <7% indicates that their diabetes is well controlled and a value greater than or equal to 7% indicates suboptimal control. A1c targets should be individualized based on duration of diabetes, age, comorbid conditions, and other considerations. Currently, no consensus exists regarding use of hemoglobin A1c for diagnosis of diabetes for children. Performed By: #### 5 8984, 7600, 98509, 496 #### [facility] [address], [address] [place] [address] [employer] Physician: Deonte Ott MD LIPID PANEL, STANDARDon 01-02 Cholesterol [Mass/Vol] 113 mg/dL Normal <200 [facility] Comment on above: Order Comment: FASTI NG:YES FASTING: YES Performed By: #### 5 8984, 7600, 53574, 496 #### [facility] [address], [address] [place] [address] [employer] Physician: Deonte Ott MD Cholesterol in HDL [Mass/Vol] 28 mg/dL Low > OR = 50 [facility] Comment on above: Order Comment: FASTI NG:YES FASTING: YES Performed By: #### 5 8984, 7600, 10890, 496 #### [facility] [address], [address] [place] [address] [employer] Physician: Deonte Ott MD Cholesterol in LDL [Mass/Vol] 52 mg/dL Normal [facility] Comment on above: Order Comment: FASTI NG:YES FASTING: YES Result Comment: Refe rence range: <100 Desirable range <100 mg/dL for primary prevention; <70 mg/dL for patients with CHD or diabetic patients with > or = 2 CHD risk factors. LDL-C is now calculated using the Yeimy calculation, which is a validated novel method providing better accuracy than the Friedewald equation in the estimation of LDL-C. Daniel SS et al. VALENTINE. 2013;310(19): 0474-8010 (http://education.Certify.Nitch/faq/PAN330) Performed By: #### 5 8984, 7600, 02818, 496 #### [facility] [address], [address] [place] [address] Aer[employer] Physician: Deonte Ott MD Cholesterol.total/Ch olesterol in HDL [Mass ratio] 4.0 {ratio} Normal <5.0 [facility] Comment on above: Order Comment: FASTI NG:YES FASTING: YES Performed By: #### 5 8984, 7600, 55786, 496 #### [facility] [address], [address] [place] [address] [employer] Physician: Deonte Ott MD NON HDL CHOLESTEROL 85 mg/dL (calc) Normal <130 [facility] Comment on above: Order Comment: FASTI NG:YES FASTING: YES Result Comment: For patients with diabetes plus 1 major ASCVD risk factor, treating to a non-HDL-C goal of <100 mg/dL (LDL-C of <70 mg/dL) is considered a therapeutic option. Performed By: #### 5 8984, 7600, 46200, 496 #### [facility] [address], [address] [place] [address] [employer] Physician: Deonte Ott MD Triglyceride [Mass/Vol] 310 mg/dL High <150 [facility] Comment on above: Order Comment: FASTI NG:YES FASTING: YES Result Comment: If a non-fasting specimen was collected, consider repeat triglyceride testing on a fasting specimen if clinically indicated. Jeanie et al. J. of Clin. Lipidol. 2015;9:129-169. Performed By: #### 5 8984, 7600, 16367, 496 #### [facility] [address], [address] [place] [address] [employer] Physician: Deonte tOt MD TSH+FREE T4on 01-27-2022 Free T4 [Mass/Vol] 1.1 ng/dL Normal 0.8-1.8 [facility] Comment on above: Performed By: #### 5 8984, 7600, 90993, 496 #### [facility] [address], [address] [place] [address] [employer] Physician: Deonte Ott MD TSH Qn 0.85 m[IU]/L Normal [facility] Comment on above: Result Comment: Refe rence Range > or = 20 Years 0.40-4.50 Ranges First trimester 0.26-2.66 Second trimester 0.55-2.73 Third trimester 0.43-2.91 Performed By: #### 5 8984, 7600, 53055, 496 #### [facility] [address], [address] [place] [address] [employer] Physician: Deonte Ott MD SCREENING MAMMOGRAM W/CELESTINO, BILATERAL*on 01-26-2022 SCREENING MAMMOGRAM W/CELESTINO, BILATERAL* COMPARISON: January 13, 2021, December 23, 2018, June 01, 2016 TECHNIQUE: 2D and 3D Tomosynthesis of the right and left breasts was performed. FINDINGS: Breast composition demonstrates scattered fibroglandular densities. Overall appearance is stable. No suspicious microcalcifications, asymmetry, architectural distortion, or associated features are present. IMPRESSION: BIRADS 1: Negative mammogram Board Certified Radiologist. Accredited by the ACR and FDA. MAMMOGRAPHY IS VERY IMPORTANT TO YOUR HEALTH. THE CURRENT [employer] [employer] GUIDELINES RECOMMENDS ANNUAL MAMMOGRAPHY BEGINNING AT AGE 40 THIS FACILITY USES A REMINDER SYSTEM TO ENSURE ALL PATIENTS RECEIVE REMINDER NOTIFICATIONS AT THE APPROPRIATE TIME BASED ON THE RECOMMENDATIONS OF THIS EXAM. Report reported and signed by Elie Lackey on 01/26/2022 1350 Normal [facility] ALBUMIN, RANDOM URINE W/CREA [place] 10-26-2021 ALBUMIN, URINE 2.0 mg/dL Normal See Note: [facility] Comment on above: Result Comment: Refe rence Range: Reference Range Not established Performed By: #### 6 517 #### [facility] [place] [address] [employer] Physician: Deonte Ott MD ALBUMIN/CREATININE RATIO, RANDOM URINE 12 mcg/mg creat Normal <30 [facility] Comment on above: Result Comment: The ADA defines abnormalities in albumin excretion as follows: Albuminuria Category Result (mcg/mg creatinine) Normal to Mildly increased <30 Moderately increased 30-299 Severely increased > OR = 300 The ADA recommends that at least two of three specimens collected within a 3-6 month period be abnormal before considering a patient to be within a diagnostic category. Performed By: #### 6 517 #### [facility] [place] [address] [employer] Physician: Deonte Ott MD Creatinine (U) [Mass/Vol] 167 mg/dL Normal 20-275 [facility] Comment on above: Performed By: #### 6 517 #### [facility] [place] [address] [employer] Physician: Deonte Ott MD COMPREHENSIVE METABOLIC PANE [facility] 04-01-2021 Albumin [Mass/Vol] 4.3 g/dL Normal 3.6-5.1 [facility] Comment on above: Performed By: #### 7 380, 29047, 37173 #### [facility] [address], [address] [place] [address] Aerospace Medicine Physician: Deonte Ott MD Albumin/Globulin [Mass ratio] 1.3 {ratio} Normal 1.0-2.5 [facility] Comment on above: Performed By: #### 7 600, 94160, 55705 #### [facility] of [place] [address] Aerospace Medicine Physician: Deonte Ott MD ALP [Catalytic activity/Vol] 81 U/L Normal 37-153 [facility] Comment on above: Performed By: #### 7 600, 59042, 74579 #### [facility] of [address], [address] [place] [address] Aerospace Medicine Physician: Deonte Ott MD ALT [Catalytic activity/Vol] 29 U/L Normal 6-29 [facility] Comment on above: Performed By: #### 7 600, 94940, 98990 #### [facility] [place] [address] Aerospace Medicine Physician: Deonte Ott MD AST [Catalytic activity/Vol] 27 U/L Normal 10-35 [facility] Comment on above: Performed By: #### 7 600, 22816, 59976 #### [facility] [place] [address] Aerospace Medicine Physician: Deonte Ott MD Bilirubin [Mass/Vol] 0.6 mg/dL Normal 0.2-1.2 [facility] Comment on above: Performed By: #### 7 600, 74509, 87654 #### [facility] of [place] [address] Aerospace Medicine Physician: Deonte Ott MD BUN/CREATININE RATIO NOT APPLICABLE Normal 6-22 [facility] Comment on above: Performed By: #### 7 600, 71954, 56422 #### [facility] [place] [address] Aerospace Medicine Physician: Deonte Ott MD Calcium [Mass/Vol] 9.8 mg/dL Normal 8.6-10.4 [facility] Comment on above: Performed By: #### 7 600, 91814, 40238 #### [facility] of [address], [address] [place] [address] Aerospace Medicine Physician: Deonte Ott MD Chloride [Moles/Vol] 105 mmol/L Normal 98-110 [facility] Comment on above: Performed By: #### 7 600, 27725, 10122 #### [facility] [address], [address] [place] [address] Aerospace Medicine Physician: Deonte Ott MD CO2 [Moles/Vol] 30 mmol/L Normal 20-32 [facility] Comment on above: Performed By: #### 7 600, 81726, 02416 #### [facility] [address], [address] [place] [address] Aerospace Medicine Physician: Deonte Ott MD Creatinine [Mass/Vol] 0.75 mg/dL Normal 0.50-1.05 [facility] Comment on above: Result Comment: For patients >49 years of age, the reference limit for Creatinine is approximately 13% higher for people identified as -[place]. Performed By: #### 7 600, 79144, 83067 #### [facility] [address], [address] [place] [address] Aerospace Medicine Physician: Denote Ott MD eGFR NON-AFR. MALAWIAN 91 mL/min/1.73m2 Normal > OR = 60 [facility] Comment on above: Performed By: #### 7 600, 15086, 17009 #### [facility] [place] [address] Aerospace Medicine Physician: Deonte Ott MD GFR/1.73 sq M.predicted among blacks MDRD (S/P/Bld) [Vol rate/Area] 105 mL/min/{1.73_m2} Normal > OR = 60 [facility] Comment on above: Performed By: #### 7 600, 32221, 41550 #### [facility] of [address], [address] [place] [address] Aerospace Medicine Physician: Deonte Ott MD Globulin (S) [Mass/Vol] 3.2 g/dL Normal 1.9-3.7 [facility] Comment on above: Performed By: #### 7 600, 54073, 72277 #### [facility] [place] [address] Aerospace Medicine Physician: Deonte Ott MD Glucose [Mass/Vol] 88 mg/dL Normal 65-99 [facility] Comment on above: Result Comment: Fasting reference interval Performed By: #### 7 600, 89761, 84127 #### [facility] [place] [address] Aerospace Medicine Physician: Deonte Ott MD Potassium [Moles/Vol] 4.3 mmol/L Normal 3.5-5.3 [facility] Comment on above: Performed By: #### 7 600, 75432, 06839 #### [facility] [place] [address] Aerospace Medicine Physician: Deonte Ott MD Protein [Mass/Vol] 7.5 g/dL Normal 6.1-8.1 [facility] Comment on above: Performed By: #### 7 600, 28356, 28630 #### [facility] [place] [address] Aerospace Medicine Physician: Deonte Ott MD Sodium [Moles/Vol] 145 mmol/L Normal 135-146 [facility] Comment on above: Performed By: #### 7 600, 52334, 60717 #### [facility] [place] [address] Aerospace Medicine Physician: Deonte Ott MD Urea nitrogen [Mass/Vol] 13 mg/dL Normal 7-25 [facility] Comment on above: Performed By: #### 7 600, 68440, 38280 #### [facility] [place] [address] Aerospace Medicine Physician: Deonte Ott MD LIPID PANEL, [place] [address] Cholesterol [Mass/Vol] 111 mg/dL Normal <200 [facility] Comment on above: Order Comment: FASTI NG:UNKNOWN FASTING: UNKNOWN Performed By: #### 7 600, 04635, 71180 #### [facility] [address], [address] [place] [address] Aerospace Medicine Physician: Deonte Ott MD Cholesterol in HDL [Mass/Vol] 26 mg/dL Low > OR = 50 [facility] Comment on above: Order Comment: FASTI NG:UNKNOWN FASTING: UNKNOWN Performed By: #### 7 600, 25741, 37758 #### [facility] [address], [address] [place] [address] Aerospace Medicine Physician: Deonte Ott MD Cholesterol in LDL [Mass/Vol] 53 mg/dL Normal [facility] Comment on above: Order Comment: FASTI NG:UNKNOWN FASTING: UNKNOWN Result Comment: Refe rence range: <100 Desirable range <100 mg/dL for primary prevention; <70 mg/dL for patients with CHD or diabetic patients with > or = 2 CHD risk factors. LDL-C is now calculated using the Yeimy calculation, which is a validated novel method providing better accuracy than the Friedewald equation in the estimation of LDL-C. Daniel SANFORD et al. VALENTINE. 2013;310(19): 6842-5213 (http://education.Certify.Nitch/faq/EOI317) Performed By: #### 7 600, 51374, 34461 #### [facility] [address], [address] [place] [address] Aerospace Medicine Physician: Deonte Ott MD Cholesterol.total/Ch olesterol in HDL [Mass ratio] 4.3 {ratio} Normal <5.0 [facility] Comment on above: Order Comment: FASTI NG:UNKNOWN FASTING: UNKNOWN Performed By: #### 7 600, 35219, 25366 #### [facility] [address], [address] [place] [address] Aerospace Medicine Physician: Deonte Ott MD NON HDL CHOLESTEROL 85 mg/dL (calc) Normal <130 [facility] Comment on above: Order Comment: FASTI NG:UNKNOWN FASTING: UNKNOWN Result Comment: For patients with diabetes plus 1 major ASCVD risk factor, treating to a non-HDL-C goal of <100 mg/dL (LDL-C of <70 mg/dL) is considered a therapeutic option. Performed By: #### 7 600, 16427, 29543 #### [facility] [address], [address] [place] [address] Aerospace Medicine Physician: Deonte Ott MD Triglyceride [Mass/Vol] 269 mg/dL High <150 [facility] Comment on above: Order Comment: FASTI NG:UNKNOWN FASTING: UNKNOWN Result Comment: If a non-fasting specimen was collected, consider repeat triglyceride testing on a fasting specimen if clinically indicated. Jeanie et al. J. of Clin. Lipidol. 2015;9:129-169. Performed By: #### 7 600, 02261, 33160 #### [facility] [place] [address] Aerospace Medicine Physician: Deonte Ott MD TSH+FREE T4on 04-01-2021 Free T4 [Mass/Vol] 1.1 ng/dL Normal 0.8-1.8 [facility] Comment on above: Performed By: #### 7 600, 78541, 59474 #### [facility] [address], [address] [place] [address] Aerospace Medicine Physician: Deonte Ott MD TSH Qn 1.17 m[IU]/L Normal [facility] Comment on above: Result Comment: Refe rence Range > or = 20 Years 0.40-4.50 Ranges First trimester 0.26-2.66 Second trimester 0.55-2.73 Third trimester 0.43-2.91 Performed By: #### 7 600, 09101, 38554 #### [facility] [address], [address] [place] [address] Aerospace Medicine Physician: Deonte Ott MD Covid-19 PCR (CVDTB)on Covid-19 DETECTED Abnormal NOT DETECTED [facility] Comment on above: Result Comment: This test is not yet approved or cleared by the [place] FDA. When there are no FDA-approved or cleared tests available, and other criteria are met, FDA can make tests available under an emergency access mechanism called an Emergency Use Authorization (EUA). The EUA for this test is supported by the Networking Technician of Health and Human Service's (HHS's) declaration that circumstances exist to justify the emergency use of in vitro diagnostics for the detection and/or diagnosis of the virus that causes COVID-19. This EUA will remain in effect (meaning this test can be used) for the duration of the COVID-19 declaration justifying emergency of IVDs, unless it is terminated or revoked by FDA (after which the test may no longer be used). Performed By: #### C VDTB #### [facility] [address] [place], [place] [address] Pillo Chanel EUA Statement SEE BELOW Normal The [facility] Comment on above: Result Comment: This test is not yet approved or cleared by the [place] FDA. When there are no FDA-approved or cleared tests available, and other criteria are met, FDA can make tests available under an emergency access mechanism called an Emergency Use Authorization (EUA). The EUA for this test is supported by the Networking Technician of Health and Human Service?s (HHS?s) declaration that circumstances exist to justify the emergency use of in vitro diagnostics for the detection and/or diagnosis of the virus that causes COVID-19. This EUA will remain in effect (meaning this test can be used) for the duration of the COVID-19 declaration justifying emergency of IVDs, unless it is terminated or revoked by FDA (after which the test may no longer be used). When diagnostic testing is negative, the possibility of a false negative should be considered in the context of a patients recent exposures and the presence of clinical signs and symptoms consistent with SARS-CoV-2. Performed By: #### C VDTB #### [facility] [address] [place], [place] [address] Pillo Chanel Vital Signs Date Time Vital Sign Value Performing Clinician Facility 06-17-2024 16:16-0500 Body mass index (BMI) [Ratio] 31.6 kg/m2 [employer]zen [employer]ist Work Phone: [facility] 06-17-2024 16:16-0500 Body weight 88.81 kg [employer] Work Phone: [facility] 06-17-2024 16:16-0500 Diastolic blood pressure 72 mm[Hg] Toi Rory DO Work Phone: [facility] 06-17-2024 16:16-0500 Systolic blood pressure 122 mm[Hg] Toi Rory DO Work Phone: [facility] 04-28-2024 13:48-0500 Body mass index (BMI) [Ratio] 30.67 kg/m2 Toi Rory DO Work Phone: [facility] 04-28-2024 13:48-0500 Body weight 86.18 kg Toi Rory DO Work Phone: [facility] 04-28-2024 13:48-0500 Diastolic blood pressure 72 mm[Hg] Toi Rory DO Work Phone: [facility] 04-28-2024 13:48-0500 Systolic blood pressure 128 mm[Hg] Toi Rory DO Work Phone: [facility] 04-07-2024 15:05-0500 Body mass index (BMI) [Ratio] 31.96 kg/m2 Dickson Bhartio CNM Work Phone: [facility] 04-07-2024 15:05-0500 Body weight 89.81 kg Dickson Bhartio CNM Work Phone: [facility] 04-07-2024 15:05-0500 Diastolic blood pressure 80 mm[Hg] Dickson Bhartio CNM Work Phone: [facility] 04-07-2024 15:05-0500 Systolic blood pressure 130 mm[Hg] Dickson Bhartio CNM Work Phone: [facility] 03-31-2024 07:53-0400 Body height 165.1 cm Arianna Flynn MD Work Phone: [facility] 03-31-2024 07:53-0400 Body mass index (BMI) [Ratio] 31.62 kg/m2 Arianna Flynn MD Work Phone: [facility] 03-31-2024 07:53-0400 Body temperature 97.9 [degF] Arianna Flynn MD Work Phone: [facility] 03-31-2024 07:53-0400 Body weight 86.18 kg Arianna lFynn MD Work Phone: [facility] 03-03-2024 07:19-0400 Body height 165.1 cm Dickson Tafoya [employer]BACK[employer]LL [employer]OOK Work Phone: [facility] 03-03-2024 07:19-0400 Body mass index (BMI) [Ratio] 31.68 kg/m2 Dickson Tafoya [employer] Work Phone: [facility] 03-03-2024 07:19-0400 Body temperature 97.9 [degF] Dickson Tafoya [employer]OOK Work Phone: [facility] 03-03-2024 07:19-0400 Body weight 86.36 kg Dickson Baconillo [employer] Work Phone: [facility] 03-03-2024 07:19-0400 Diastolic blood pressure 60 mm[Hg] Dickson Tafoya [employer] Work Phone: [facility] 03-03-2024 07:19-0400 Heart rate 89 /min Dickson Tafoya [employer] Work Phone: [facility] 03-03-2024 07:19-0400 Respiratory rate 16 /min Dickson Baconillo [employer] Work Phone: [facility] 03-03-2024 07:19-0400 SaO2% (BldA) [Mass fraction] 97 % Dickson Baconillo [employer]OOK Work Phone: [facility] 03-03-2024 07:19-0400 Systolic blood pressure 110 mm[Hg] Dickson Tafoya [employer]OOK Work Phone: [facility] Encounters Encounter Date Encounter Type Care Provider Facility Start: 07-14-2024 End: 07-14-2024 Orders Only Dickson Tafoya [employer]OOK Work Phone: [facility] Comment on above: Special screening fo r malignant neoplasm of colon (Primary Dx) Start: 07-08-2024 End: 07-09-2024 Telephone encounter Dickson Tafoya [employer]LL [employer]OOK Work Phone: [facility] Start: 2024 End: 2024 ambulatory [facility] Start: 07-03-2024 End: 07-03-2024 Clinisync Result Encounter Toi Rory DO Work Phone: [facility] Unsolicited Start: 07-03-2024 End: 07-03-2024 Clinisync Result Encounter Oti Rory DO Work Phone: [facility] Unsolicited Start: 06-17-2024 End: 06-17-2024 Office outpatient visit 15 minutes Toi Rory DO Work Phone: [facility] Comment on above: Preop examination; Postmenopausal bleeding Start: 06-17-2024 End: 06-17-2024 Preprocedural examination done Toi Rory DO Work Phone: [facility] Start: 06-17-2024 End: 06-17-2024 ambulatory TOI RORY Not Available Start: 06-17-2024 End: 06-17-2024 Bamboo flowsheet Toi Rory DO Work Phone: [facility] Start: 06-17-2024 End: 06-17-2024 Bamboo flowsheet Toi Rory DO Work Phone: [facility] Start: 06-10-2024 End: 06-10-2024 Telephone encounter Dickson Naqvi CNM Work Phone: [facility] Start: 06-07-2024 End: 06-08-2024 Refill Dickson Tafoya [employer] Work Phone: [facility] Comment on above: Hyperlipidemia, unsp ecified hyperlipidemia type Start: 05-13-2024 End: 05-13-2024 Orders Only Jennyfer Rivas [employer]OOK Work Phone: [facility] Start: 05-12-2024 End: 05-13-2024 Telephone encounter Pema Rangel [facility] Start: 05-05-2024 End: 05-05-2024 Refill Pema Rangel [facility] Comment on above: Type 2 diabetes varsha itus without complication, with long-term current use of insulin ([facility]) Start: 04-28-2024 End: 04-28-2024 Bamboo flowsheet Toi Rory DO Work Phone: [facility] Start: 04-28-2024 End: 04-28-2024 Bamboo flowsheet Toi Rory DO Work Phone: [facility] Start: 04-28-2024 End: 04-28-2024 Office outpatient visit 15 minutes Toi Rory DO Work Phone: [facility] Comment on above: Post-menopausal blee ding Start: 04-28-2024 End: 04-28-2024 ambulatory TOI RORY Not Available Start: 04-20-2024 End: 04-21-2024 Refill Dickson Tafoya [employer] Work Phone: [facility] Comment on above: Acquired hypothyroid ism; Reactive depression Start: 04-20-2024 End: 04-20-2024 Telephone encounter Pema Rangel [facility] Start: 04-08-2024 End: 04-08-2024 Patient encounter procedure Dickson Naqvi CNM Work Phone: [facility] Comment on above: Post-menopausal blee ding (Primary Dx) Start: 04-08-2024 End: 04-08-2024 ambulatory DICKSON L FLORO Not Available Start: 04-07-2024 End: 04-07-2024 Gynecological examination normal Dickson Naqvi CNM Work Phone: [facility] Work Phone: Start: 04-07-2024 End: 04-07-2024 Periodic preventive med est patient 40-64yrs Dickson Jordano CNM Work Phone: [facility] Comment on above: Post-menopausal blee ding (Primary Dx); Normal gynecologic examination; Uterine prolapse; Fibroid Start: 04-07-2024 End: 04-07-2024 ambulatory DICKSON JORDANO Not Available Start: 04-07-2024 End: 04-07-2024 Bamboo flowsheet Dickson Jordano CNM Work Phone: [facility] Start: 04-07-2024 End: 04-07-2024 Bamboo flowsheet Dickson Jordano CNM Work Phone: [facility] Start: 03-31-2024 End: 03-31-2024 Office outpatient visit 25 minutes Arianna Flynn MD Work Phone: [facility] Comment on above: Other specified diso rders of eustachian tube, left ear (Primary Dx); Fullness in ear, bilateral; Dysfunction of both eustachian tubes [H69.93]; Seasonal allergic rhinitis due to pollen; Mixed conductive and sensorineural hearing loss of left ear with restricted hearing of right ear Start: 03-31-2024 End: 03-31-2024 Clinical Support Ppbp Ent Audio 2 [facility] Comment on above: Other specified diso rders of eustachian tube, left ear (Primary Dx); Fullness in ear, bilateral Start: 03-03-2024 End: 03-03-2024 Office outpatient visit 25 minutes Dickson Tafoya APRN-GRILL COOK Work Phone: [facility] Comment on above: Type 2 diabetes varsha itus without complication, with long-term current use of insulin ([facility]) (Primary Dx); Vitamin D deficiency; Acquired hypothyroidism; Essential hypertension; Mixed hyperlipidemia; Reactive depression Start: 03-03-2024 End: 03-03-2024 ambulatory [facility] Start: 02-04-2024 End: 02-04-2024 ambulatory CLAU HAWKINS [facility] Start: 12-03-2023 End: 12-03-2023 ambulatory [facility] Start: 11-22-2023 End: 11-22-2023 ambulatory MILTON BRIZUELA Not Available Start: 11-22-2023 ambulatory MILTON Shah [facility] Start: 11-12-2023 End: 11-12-2023 ambulatory [facility] Start: 11-12-2023 Encounter for genera l adult medical examination without abnormal findings [facility] Start: 09-25-2023 End: 09-25-2023 Orders Only [facility] [employer]LL [employer]OOK Work Phone: [facility] Start: 09-23-2023 End: 09-24-2023 Refill [place] [employer]BACK[employer]S AGENT [address] Work Phone: [facility] Comment on above: Hyperlipidemia, unsp ecified hyperlipidemia type Start: 09-04-2023 Refill [place] [employer]ENT [address] Work Phone: [facility] Start: 08-22-2023 Refill [place] [employer]ENT [address] Work Phone: [facility] Start: 07-23-2023 Refill [place] [employer]ENT [address] Work Phone: [facility] Comment on above: Vitamin D deficiency Start: 06-27-2023 Refill [place] [employer]ENT [address] Work Phone: [facility] Start: 06-25-2023 Orders Only [place] [employer]ENT [address] Work Phone: [facility] Comment on above: Yeast vaginitis (Leny akiko Dx) Type 2 diabetes varsha itus without complication, with long-term current use of insulin ([facility]) (Primary Dx) Start: 06-10-2023 Orders Only [place] [employer]BACK-CLAIMS AGENT RIGHT [address] Work Phone: [facility] Start: 06-04-2023 Refill Clau Suarez O Work Phone: [facility] Comment on above: Hyperlipidemia, unsp ecified hyperlipidemia type Class 1 obesity due to excess calories with serious comorbidity and body mass index (BMI) of 31.0 to 31.9 in adult Start: 05-09-2020 End: 05-10-2020 Patient encounter procedure AKIKO VILLA Facility: Procedures Date Procedure Procedure Detail Performing Clinician Start: 07-03-2024 ALL BASIC METABOLIC PANEL Toi Rory DO Work Phone: Start: 07-03-2024 ECG 12-LEAD Simalaya o DO Work Phone: Start: 04-24-2024 Diabetic retinal eye exam Pema Rangel [facility] Start: 04-08-2024 Microscopic observat ion [Identifier] in Cervix by Cyto stain Toi Rory DO Work Phone: Start: 04-08-2024 Cytp cerv/vag auto t hin layer prep mnl screen Dickson Naqvi CNM Work Phone: Start: 03-03-2024 Hemoglobin glycosyla raphael a1c Dickson Tafoya [employer]BACK[employer]LL [employer]OOK Work Phone: Start: 03-03-2024 Adult depression scr eening assessment Dickson Tafoya [employer]BACK[employer]LL COOK Work Phone: Start: 11-22-2023 Mammography Dickson Fl jed CNM Work Phone: Start: 11-12-2023 Microalbumin [Mass/v olume] in Urine by Test strip Dickson Tafoya APRN-GRILL COOK Work Phone: Start: 03-18-2023 Adult depression scr eening assessment Clau De La Cruz DO Work Phone: Start: 03-18-2023 Microalbumin [Mass/v olume] in Urine by Test strip Clau De La Cruz DO Work Phone: Start: 03-05-2023 Diabetic retinal eye exam Clau De La Cruz DO Work Phone: Plan of Treatment Date Care Activity Detail Author Start: 03-18-2033 DTaP,Tdap and Td Vaccines (2 - Td or Tdap) DTaP,Tdap and Td Vaccines (2 - Td or Tdap) [facility] Start: 04-08-2029 Screening for malign ant neoplasm of cervix [facility] Start: 04-08-2027 Screening for malign ant neoplasm of cervix Pap Smear [facility] Start: 2025 Adult BMI Screening Adult BMI Screen ing [facility] Start: 04-24-2025 Glaucoma screening Diabetic Op hthalmology Exam [facility] Start: 03-31-2025 Adult BMI Screening Adult BMI Screen ing [facility] Start: 03-31-2025 Tobacco Screening Tobacco Screening [facility] Start: 03-03-2025 Adult BMI Follow Up Plan Adult BMI Follow Up Plan [facility] Start: 03-03-2025 Adult BMI Screening Adult BMI Screen ing [facility] Start: 03-03-2025 Depression Screening Depression Scre ening [facility] Start: 03-03-2025 Tobacco Screening Tobacco Screening [facility] Start: 12-02-2024 Adult BMI Follow Up Plan Adult BMI Follow Up Plan [facility] Start: 11-21-2024 Screening for malign ant neoplasm of breast Mammogram [facility] Start: 11-11-2024 Urine screening for protein Urine Microalbumin [facility] Start: 07-28-2024 End: 07-28-2024 Patient encounter procedure 07/28/2024 9:30 AM EST Office Visit [facility] [address] [place] [address] Ena Martinez, PA [address] [place] [address] [facility] Start: 06-20-2024 Screening for malign ant neoplasm of colon [facility] Start: 06-17-2024 End: 06-17-2024 Patient encounter procedure [facility] Comment on above: Arrived Start: 04-17-2024 Adult BMI Screening Adult BMI Screen ing [facility] Start: 04-17-2024 Tobacco Screening Tobacco Screening [facility] Start: 04-07-2024 End: 04-07-2024 Professional / ancillary services management 04/07/2024 3:30 PM EST Ancillary Procedure [facility] [address] [id number] [facility] Start: 04-07-2024 End: 04-07-2024 Patient encounter procedure 04/07/2024 3:00 PM EST Office Visit [facility] [address] [place] [address] Dickson Naqvi, MESSIM [address] [place], [place] [id number] Arrived [facility] Comment on above: Arrived Start: 03-31-2024 End: 03-31-2024 Clinical Support [facility] Throat Start: 03-18-2024 Adult BMI Follow Up Plan Adult BMI Follow Up Plan [facility] Start: 03-18-2024 Depression Screening Depression Scre ening [facility] Start: 03-18-2024 Diabetic foot examination Diabetic Foot Exam [facility] Start: 03-18-2024 Urine screening for protein Urine Microalbumin [facility] Start: 03-05-2024 Glaucoma screening Diabetic Op hthalmology Exam [facility] Start: 02-02-2024 Influenza vaccination Influenza Vacc ine [facility] Start: 02-01-2023 Influenza vaccination Influenza Vacc ine [facility] Start: 1997 Screening for malign ant neoplasm of cervix [facility] Start: 1988 Screening for malign ant neoplasm of cervix Pap Smear [facility] Start: 1967 Screening for malign ant neoplasm of colon [facility] Start: 1967 Statin Use: Diabetic Statin Use: Susy read [facility] Cologuard [facility] Cologuar d [facility] Lab Routine Special screening for malignant neoplasm of colon Ordered: 07/14/2024 [facility] Work Phone: Comment on above: Ordered: 07/14/2024 Immunizations Immunization Date Immunization Notes Care Provider Fa marcie 02-29-2024 Seasonal, trivalent, recombinant, injectable influenza vaccine, preservative free Dicksonkike Tafoya [employer] Work Phone: [facility] 03-18-2023 tetanus toxoid, redu silva diphtheria toxoid, and acellular pertussis vaccine, adsorbed Akiko Villa [employer] [address] [employer] [address] Work Phone: [facility] 03-18-2022 Seasonal, quadrivale nt, recombinant, injectable influenza vaccine, preservative free Akiko Villa [employer] [address] Work Phone: [facility] 03-18-2022 influenza virus vaccine, unspecified formulation Clau Dell DO Work Phone: [facility] 04-13-2021 influenza, injectabl e, quadrivalent, preservative free Akiko Villa [employer] [address] Work Phone: [facility] 04-04-2020 influenza, injectabl e, quadrivalent, contains preservative Akiko Villa [employer] [address] Work Phone: [facility] 04-06-2019 Influenza, injectabl e, Madin Mather Canine Kidney, quadrivalent with preservative Akiko Villa [employer] [address] Work Phone: [facility] 09-29-2018 pneumococcal conjuga te vaccine, 13 valent Akiko Villa [employer] [address] Work Phone: [facility] 04-22-2018 zoster vaccine recombinant Akiko Villa [employer] [address] Work Phone: [facility] 03-11-2018 Influenza, injectabl e, Madin Mather Canine Kidney, preservative free, quadrivalent Akiko Villa [employer] [address] Work Phone: [facility] 02-21-2018 zoster vaccine recombinant Akiko Villa [employer] [address] Work Phone: [facility] 02-05-2018 tuberculin skin test ; purified protein derivative solution, intradermal Akiko Villa [employer] [address] Work Phone: [facility] 07-11-2017 pneumococcal conjuga te vaccine, 13 valent Akiko Villa [employer] [address] Work Phone: [facility] 03-27-2017 Influenza, injectabl e, Madin Mather Canine Kidney, preservative free, quadrivalent Akiko Villa [employer] [address] Work Phone: [facility] 04-04-2016 influenza, seasonal, injectable, preservative free Akiko Villa [employer] [address] Work Phone: [facility] 02-09-2016 tuberculin skin test ; purified protein derivative solution, intradermal Akiko Villa [employer] [address] Work Phone: [facility] 12-14-2015 tuberculin skin test ; purified protein derivative solution, intradermal Akiko Villa [employer] [address] Work Phone: [facility] Payers Date Payer Category Payer Commercial Managed C are - POS [id number] 2017 Managed Care HMO (unspecified) [employer] [id number] 2017 Private Health Insurance [employer] [place] POS II [id number] 2017-Present [phone] [address] [place] [address] [id number] 2017 Private Health Insurance [id number] 1967 Unknown [id number] .[id number] 1967 Unknown [id number] [id number] .2.1285 1967 Unknown [id number] [id number] .2.1285 1967 Unknown [id number] 2.840.1.599207.3.579 .2.1285 1967 Unknown [id number] 2.840.1.054733.3.579 .2.1285 1967 Unknown [id number] 2.840.1.683710.3.579 .2.1285 1967 Unknown [id number] 2.16.840.1.361278.3.579 .2.1285 1967 Unknown [id number] 2.16.840.1.775033.3.579 .2.1285 1967 Unknown [id number] 2.16.840.1.920666.3.579 .2.1285 1967 Unknown [id number] 2.16840.1.010343.3.579 .2.1285 1967 Unknown [id number] 2.16840.1.746442.3.579 .2.1259 1967 Unknown [id number] 2.16.840.1.625166.3.579 .2.9 1967 Unknown [id number] 2.16.840.1.065344.3.579 .2.1259 1967 Unknown [id number] 2.16.840.1.422797.3.579 .2.9 1967 Unknown [id number] 2.16.840.1.087398.3.579 .2.1259 1967 Unknown [id number] 2.16.840.1.245399.3.579 .2.9 1967 Unknown [id number] [id number] .2.1286 1959 Unknown [id number] Social History Date Type Detail Facility Start: 07-16-2022 End: 04-07-2024 Tobacco smoking status NHIS Never smoked tobacco [facility] Start: 07-16-2022 End: 04-07-2024 Tobacco use and exposure Smokeless tobacco non-user [facility] Start: 04-17-2023 End: 03-31-2024 Alcohol intake Current drinker of alcohol (finding) [facility] Start: 07-14-2020 End: 04-17-2023 History of Social function [facility] Start: 07-14-2020 End: 04-17-2023 Tobacco use panel [facility] Adolescent depressio n screening assessment 0 [facility] Start: 1965 Sex Assigned At Female [facility] Start: 10-02-2022 Gender identity Identifies as female gender (finding) [facility] Start: 10-02-2022 Sexual orientation Choose not to disclose [facility] Start: 02-04-2024 Alcohol Comment Once a year [facility] Start: 01-06-2015 Sex Female (finding) [facility] Tobacco smoking stat RUSTIS Tobacco smoking consumption unknown [facility] Start: 11-22-2023 Sexual orientation Heterosexual (finding) [facility] Clinical Notes 06-10-2023 to 07-08-2024 Telephone Encounter - Sadie Dominguez - 07/08/2024 10:25 AM ESTTelephone Encounter - LEATHA Shah - 07/08/2024 10:25 AM ESTYanique Peralta LPN - 06/17/2024 3:50 PM EST Note Date & Type Note Facility 07-08-2024 Miscellaneous Notes Patient surgery is next week, rory office called and they were asking about the clearance note. I did not see anything in the chart. Are you able to do that when you have a minute? Dr. De La Cruz will be doing this. Message noted. A letter is written and printed on 297 On your desk to sign documented in this encounter [facility] 07-08-2024 Telephone encounter Note Patient surgery is next week, rory office called and they were asking about the clearance note. I did not see anything in the chart. Are you able to do that when you have a minute? [facility] 07-08-[address] De La Cruz will be doing this. [facility] 07-08-2024 Telephone encounter Note Message noted. A letter is written and printed on 297 [facility] Work Phone: 07-08-2024 Telephone encounter Note On your desk to sign [facility] 06-17-2024 History of Present illness Narrative Reason for Appointment: Patient ID: Danny Ahmadi is a 58 y.o. female who presents for No chief complaint on file. Patient presents today for Pre Op appointment. Patient is scheduled to undergo D&C Hysteroscopy, possible Myosure on 07/17/[address] Valadez at [facility]. MEDICATIONS Current Outpatient Medications Medication Instructions amLODIPine (NORVASC) 10 mg, Daily RT atorvastatin (LIPITOR) 40 mg, Daily RT citalopram (CELEXA) 40 mg, Oral, Every morning ergocalciferol (VITAMIN D2) 50,000 Units, Weekly famotidine (PEPCID) 20 mg, 2 times daily levothyroxine (SYNTHROID, LEVOXYL) 150 mcg, Daily RT meloxicam (MOBIC) 15 mg, Daily RT metFORMIN (GLUCOPHAGE) 1,000 mg, Oral, 2 times daily with meals Ozempic (0.25 or 0.5 MG/DOSE) 0.5 mg, Weekly Tresiba FlexTouch 38 Units, Subcutaneous, Nightly ALLERGIES No Known Allergies PROBLEMS Active Ambulatory Problems Diagnosis Date Noted No Active Ambulatory Problems Resolved Ambulatory Problems Diagnosis Date Noted No Resolved Ambulatory Problems Past Medical History: Diagnosis Date Diabetes (CMS/HCC) GERD (gastroesophageal reflux disease) Hypertension (CMS/HCC) Hypothyroid (CMS/HCC) HISTORY PAST MEDICAL HISTORY SOCIAL HISTORY Past Medical History: Diagnosis Date Diabetes (CMS/HCC) GERD (gastroesophageal reflux disease) Hypertension (CMS/HCC) Hypothyroid (CMS/HCC) Social History Tobacco Use Smoking status: Never Smokeless tobacco: Never Substance Use Topics Alcohol use: Yes Drug use: Never FAMILY HISTORY Family History Problem Relation Name Age of Onset Hypertension Mother Thyroid disease Mother Heart attack Father SURGICAL HISTORY Past Surgical History: Procedure Laterality Date APPENDECTOMY CARPAL TUNNEL RELEASE CHOLECYSTECTOMY COLPOSCOPY TONSILLECTOMY REVIEW OF SYSTEMS Review of Systems: Review of Systems Constitutional: Negative. HENT: Negative. Eyes: Negative. Respiratory: Negative. Cardiovascular: Negative. Gastrointestinal: Negative. Genitourinary: Positive for menstrual problem and vaginal bleeding. Musculoskeletal: Negative. Skin: Negative. Neurological: Negative. All other systems reviewed and are negative. Hematological: Negative. Endocrine: Negative. Allergic/Immunologic: Negative. OBJECTIVE Objective: Physical Exam Constitutional: Appearance: Normal appearance. She is well-developed. Cardiovascular: Rate and Rhythm: Normal rate and regular rhythm. Pulmonary: Effort: Pulmonary effort is normal. Breath sounds: Normal breath sounds. Abdominal: General: Bowel sounds are normal. There is no distension. Palpations: Abdomen is soft. Tenderness: There is no abdominal tenderness. There is no guarding or rebound. Musculoskeletal: General: No swelling. Normal range of motion. Right lower leg: No edema. Left lower leg: No edema. Neurological: Mental Status: She is alert and oriented to person, place, and time. Skin: General: Skin is warm and dry. Psychiatric: Mood and Affect: Mood normal. Behavior: Behavior normal. Vitals and nursing note reviewed. Exam conducted with a machine stacker present. Vitals: Estimated body mass index is 31.6 kg/m as calculated from the following: Height as of 01/06/19: 5' 6 . Weight as of this encounter: 195 lb 12.8 oz. BP: 122/72 No LMP recorded (lmp unknown). Patient is postmenopausal. ASSESSMENT & PLAN ICD-10-CM 1. Preop examination Z01.818 2. Postmenopausal bleeding N95.0 Pre Op: Patient is doing well but has complaints of post-menopausal bleeding. I have discussed conservative management vs. surgical management with the patient in detail and patient desires surgical management at this time. Patient will undergo D&C Hysteroscopy, possible Myosure on 07/17/24. Surgical consents were signed, mmc was reviewed, and patient is to proceed to [facility] OR. Follow Up: Patient is to follow up between 1-2 weeks post operative to assess proper healing and recovery from procedure. Documented by Yanique Peralta LPN on behalf of: Toi Valadez DO documented in this encounter [facility] 06-10-2024 Telephone encounter Note Pt returned call and wanted you to know that she is scheduled with Dr. Valadez and will keep the appointment and discuss with him. [facility] 06-10-2024 Miscellaneous Notes Pt returned call and wanted you to know that she is scheduled with Dr. Valadez and will keep the appointment and discuss with him. documented in this encounter [facility] 05-12-2024 Miscellaneous Notes [facility] was supposed to send in 3 difulcan for patient due to the sugar sometimes causes Yeast infections. Can you please send in the prescription. Sent to [facility] although there is a High risk interaction with diflucan and her celexa- may prolong QT interval causing heart rhythm problems. Advise topical agents instead of oral for yeast infection. Notified Patient documented in this encounter [facility] 05-12-2024 Telephone encounter Note [facility] was supposed to send in 3 difulcan for patient due to the sugar sometimes causes Yeast infections. Can you please send in the prescription. [facility] 05-12-2024 Telephone encounter Note Sent to [facility] although there is a High risk interaction with diflucan and her celexa- may prolong QT interval causing heart rhythm problems. Advise topical agents instead of oral for yeast infection. [facility] Work Phone: 05-12-2024 Telephone encounter Note Notified Patient [facility] 05-05-2024 Miscellaneous Notes Can you send in a 1 month supply for Metformin she is totally out. Done. 90 day to mail order and 30 day supply to [facility]. documented in this encounter [facility] 05-05-2024 Telephone encounter Note Can you send in a 1 month supply for Metformin she is totally out. [facility] 05-05-2024 Telephone encounter Note Done. 90 day to mail order and 30 day supply to [facility]. [facility] 04-28-2024 History of Present illness Narrative Reason for Appointment: Patient ID: Danny Ahmadi is a 58 y.o. female who presents for Post menopausal bleeding (Pt present today for Post menopausal bleeding. Referral from [facility]. ) Patient presents today for Acute Visit. MEDICATIONS Current Outpatient Medications Medication Instructions amLODIPine (NORVASC) 10 mg, Daily RT atorvastatin (LIPITOR) 40 mg, Daily RT citalopram (CELEXA) 40 mg, Oral, Every morning ergocalciferol (VITAMIN D2) 50,000 Units, Weekly famotidine (PEPCID) 20 mg, 2 times daily levothyroxine (SYNTHROID, LEVOXYL) 150 mcg, Daily RT meloxicam (MOBIC) 15 mg, Daily RT metFORMIN (GLUCOPHAGE) 1,000 mg, Oral, 2 times daily with meals Ozempic (0.25 or 0.5 MG/DOSE) 0.5 mg, Weekly Tresiba FlexTouch 38 Units, Subcutaneous, Nightly ALLERGIES No Known Allergies PROBLEMS Active Ambulatory Problems Diagnosis Date Noted No Active Ambulatory Problems Resolved Ambulatory Problems Diagnosis Date Noted No Resolved Ambulatory Problems Past Medical History: Diagnosis Date Diabetes (CMS/HCC) GERD (gastroesophageal reflux disease) Hypertension (CMS/HCC) Hypothyroid (CMS/HCC) HISTORY PAST MEDICAL HISTORY SOCIAL HISTORY Past Medical History: Diagnosis Date Diabetes (CMS/HCC) GERD (gastroesophageal reflux disease) Hypertension (CMS/HCC) Hypothyroid (CMS/HCC) Social History Tobacco Use Smoking status: Never Smokeless tobacco: Never Substance Use Topics Alcohol use: Yes Drug use: Never FAMILY HISTORY Family History Problem Relation Name Age of Onset Hypertension Mother Thyroid disease Mother Heart attack Father SURGICAL HISTORY Past Surgical History: Procedure Laterality Date APPENDECTOMY CARPAL TUNNEL RELEASE CHOLECYSTECTOMY COLPOSCOPY TONSILLECTOMY REVIEW OF SYSTEMS Review of Systems: Review of Systems Constitutional: Negative. HENT: Negative. Eyes: Negative. Respiratory: Negative. Cardiovascular: Negative. Gastrointestinal: Negative. Genitourinary: Negative. Musculoskeletal: Negative. Skin: Negative. Neurological: Negative. All other systems reviewed and are negative. Hematological: Negative. Endocrine: Negative. Allergic/Immunologic: Negative. OBJECTIVE Objective: Physical Exam Constitutional: Appearance: Normal appearance. She is well-developed. Cardiovascular: Rate and Rhythm: Normal rate and regular rhythm. Pulmonary: Effort: Pulmonary effort is normal. Breath sounds: Normal breath sounds. Abdominal: General: Bowel sounds are normal. There is no distension. Palpations: Abdomen is soft. Tenderness: There is no abdominal tenderness. There is no guarding or rebound. Musculoskeletal: General: No swelling. Normal range of motion. Right lower leg: No edema. Left lower leg: No edema. Neurological: Mental Status: She is alert and oriented to person, place, and time. Skin: General: Skin is warm and dry. Psychiatric: Mood and Affect: Mood normal. Behavior: Behavior normal. Vitals and nursing note reviewed. Exam conducted with a machine stacker present. Vitals: Estimated body mass index is 30.67 kg/m as calculated from the following: Height as of 01/06/19: 5' 6 . Weight as of this encounter: 190 lb. BP: 128/72 No LMP recorded (lmp unknown). Patient is postmenopausal. ASSESSMENT & PLAN ICD-10-CM 1. Post-menopausal bleeding N95.0 Ambulatory referral to Obstetrics / Gynecology Pt is a referral from [facility] - pt had postmenopausal bleeding. Pt did not tolerate emb by [facility]. Pt to be scheduled for D&C hysteroscopy with poss myosure. Pt does desire hysterectomy. Pt has cystocele, pt denies symptoms. Pt to return for preop. Documented by Yanique Peralta LPN on behalf of: Toi Valadez DO documented in this encounter [facility] 04-20-2024 Miscellaneous Notes Patient was wondering if you would mind sending in 3 diflucan just in case she gets a yeast infection while on vacation? Also she needs samples for Ozempic. Done documented in this encounter [facility] 04-20-2024 Telephone encounter Note Patient was wondering if you would mind sending in 3 diflucan just in case she gets a yeast infection while on vacation? Also she needs samples for Ozempic. [facility] 04-20-2024 Telephone encounter Note Done [facility] 04-08-2024 History of Present illness Narrative EMBX: Patient was placed in dorsal lithotomy position with feet in stirrups. A sterile speculum was placed into the vagina and the cervix was visualized. The cervix was then cleansed with betadine. The cervix was then grasped with a single tooth tenaculum. The uterus was unable to be sounded due to stenosis. I then used a cervical dilator and met resistance at approx 5 cm. Patient was in pain and I did not want to force the tenaculum in. CHRISTAL placed onto cervix. Procedure aborted and I spoke with Dr Valadez. He will see the patient and also perform hysteroscopy D&C. PVU and she will wait for his office to call with an appt. Follow Up: Patient will be notified of pathology report and plan of care will be discussed after results received. Patient should return to office for an appt post op procedures l\ documented in this encounter [facility] 04-07-2024 History of Present illness Narrative PROBLEM VISIT Danny Ahmadi is 58 y.o. a patient of [facility] [employer] Here for post menopausal bleeding Last pap: 2018 Last mammogram: 11/22/23 No LMP recorded. History: Past Medical History: Diagnosis Date Diabetes (CMS/HCC) GERD (gastroesophageal reflux disease) Hypertension (CMS/HCC) Hypothyroid (CMS/HCC) Past Surgical History: Procedure Laterality Date APPENDECTOMY CARPAL TUNNEL RELEASE CHOLECYSTECTOMY COLPOSCOPY TONSILLECTOMY Family History Problem Relation Name Age of Onset Hypertension Mother Thyroid disease Mother Heart attack Father @[email or web address]@ Allergies: No Known Allergies Medications: Current Outpatient Medications on File Prior to Visit Medication Sig Dispense Refill amLODIPine (Norvasc) 10 MG tablet Take 10 mg by mouth in the morning. atorvastatin (Lipitor) 40 MG tablet Take 40 mg by mouth in the morning. ergocalciferol (Vitamin D2) 1.25 MG (92119 UT) capsule Take 50,000 Units by mouth 1 (one) time per week famotidine (Pepcid) 20 MG tablet Take 20 mg by mouth in the morning and 20 mg before bedtime. levothyroxine (Synthroid, Levoxyl) 150 MCG tablet Take 150 mcg by mouth in the morning. meloxicam (Mobic) 15 MG tablet Take 15 mg by mouth in the morning. Semaglutide,0.25 or 0.5MG/DOS, (Ozempic, 0.25 or 0.5 MG/DOSE,) 2 MG/3ML solution pen-injector Inject 0.5 mg under the skin once a week citalopram (CeleXA) 40 MG tablet Take 40 mg by mouth in the morning. insulin degludec (Tresiba FlexTouch) 100 UNIT/ML injection Inject 38 Units under the skin at bedtime metFORMIN (Glucophage) 1000 MG tablet Take 1,000 mg by mouth in the morning and 1,000 mg in the evening. Take with meals. No current facility-administered medications on file prior to visit. Vitals: 04/07/24 1505 BP: 130/80 HPI: Pt states she hasn't had a period in 5 years. She states she started bleeding on Saturday and it was like a period and it stopped bleeding Saturday evening and hasn't had nothing since then. ROS: Review of Systems All other systems reviewed and are negative. Physical exam: Physical Exam Vitals reviewed. Constitutional: Appearance: Normal appearance. HENT: Head: Normocephalic. Right Ear: Tympanic membrane normal. Left Ear: Tympanic membrane normal. Mouth/Throat: Mouth: Mucous membranes are moist. Eyes: Pupils: Pupils are equal, round, and reactive to light. Cardiovascular: Rate and Rhythm: Normal rate and regular rhythm. Pulses: Normal pulses. Heart sounds: Normal heart sounds. Pulmonary: Effort: Pulmonary effort is normal. Breath sounds: Normal breath sounds. Chest: Breasts: Right: Normal. Left: Normal. Abdominal: General: Abdomen is flat. Bowel sounds are normal. Palpations: Abdomen is soft. Tenderness: There is no abdominal tenderness. Genitourinary: General: Normal vulva. Exam position: Lithotomy position. Vagina: Normal. No tenderness. Cervix: Normal. No cervical motion tenderness. Uterus: Normal. Adnexa: Right adnexa normal and left adnexa normal. Comments: Prolapse- uterine Musculoskeletal: General: Normal range of motion. Cervical back: Normal range of motion and neck supple. Skin: General: Skin is warm and dry. Neurological: General: No focal deficit present. Mental Status: She is alert and oriented to person, place, and time. Psychiatric: Mood and Affect: Mood normal. Assessment and Plan: There are no diagnoses linked to this encounter. Patient had an all day episode of uterine bleeding on Saturday (2 days ago) that lasted all day and she needed a mini pad at first and then a full pad. Since Saturday she has had no vaginal bleeding. Denies pain. US today indicted preliminary dx of fibroid, endometrium is 6.7 cm Patient scheduled for EMB tomorrow morning with me and then I will make the referral to Dr Valadez for hysteroscopy D&C No follow-ups on file. There are no Patient Instructions on file for this visit. Alena Dumont MA,04/07/2024 3:18 PM documented in this encounter [facility] 03-31-2024 History of Present illness Narrative Images from the original note were not included. Patient ID: Danny Ahmadi is a 58 y.o. female. Chief Complaint: Chief Complaint Patient presents with Eustachian tube dysfunction History: Danny Ahmadi is a pleasant 58 y.o. female who presents today for aural fullness with an audiogram prior. She was last seen in ENT on 02/04/[address] Hawkins for dysfunction of the left eustachian tube. Onset of patient's symptoms occurred after flying in October and notes that her ears have felt plugged since. She has a flight in May and which she is concerned about worsening or reoccurrence of pressure. Patient notes that she experiences otalgia during descent which typically resolves during the flight. She notes plugging and otalgia of the right ear, worse than the left. Shortly after, patient experienced a bout of acute sinusitis which affected the left ear. She initiated antibiotics and Flonase. notes. Patient notes experiencing severe muffled sound of the ears this most recent Saturday which contributed to a headache. Patient has a childhood history of ear issues and notes a tympanic perforation. She however did not experience recurrent infections or ear surgery as a child. She denies tinnitus and otorrhea. She denies changes in her hearing since her last visit. She experiences intermittent otalgia of the left ear since last week. Patient experiences weekly headaches which occurs throughout the week which she relates to work stress. She notes a history of allergic rhinitis. There is not a familial history of ear issues. Patient partakes in activities that produce loud noise exposure. Past History: The following portions of the patient's history were reviewed and updated as appropriate: MEDICATIONS Current Outpatient Medications: amLODIPine (NORVASC) 10 mg tablet, Take 1 tablet (10 mg total) by mouth in the morning., Disp: 90 tablet, Rfl: 1 atorvastatin (LIPITOR) 40 mg tablet, Take 1 tablet (40 mg total) by mouth in the morning., Disp: 90 tablet, Rfl: 2 citalopram (CeleXA) 40 mg tablet, Take 1 tablet (40 mg total) by mouth in the morning., Disp: 90 tablet, Rfl: 1 ergocalciferol (DRISDOL) 1,250 mcg (50,000 unit) capsule, Take 1 capsule (50,000 Units total) by mouth once a week., Disp: 12 capsule, Rfl: 3 famotidine (PEPCID) 20 mg tablet, TAKE 1 TABLET IN THE MORNING AND 1 TABLET BEFOREBEDTIME, Disp: 180 tablet, Rfl: 1 fexofenadine (NATHANAEL) 180 mg tablet, Take 1 tablet (180 mg total) by mouth in the morning., Disp: 30 tablet, Rfl: 11 fluticasone propionate (FLONASE) 50 mcg/actuation nasal spray, Administer 2 sprays into each nostril in the morning., Disp: 16 g, Rfl: 11 insulin degludec (TRESIBA) 200 unit/mL (3 mL) insulin pen, Inject 38 Units under the skin in the morning., Disp: 9 mL, Rfl: 1 levothyroxine (SYNTHROID, LEVOTHROID) 150 MCG tablet, Take 1 tablet (150 mcg total) by mouth in the morning., Disp: 90 tablet, Rfl: 1 losartan (COZAAR) 100 mg tablet, Take 1 tablet (100 mg total) by mouth in the morning., Disp: 90 tablet, Rfl: 1 meloxicam (MOBIC) 15 mg tablet, Take 1 tablet (15 mg total) by mouth in the morning., Disp: 90 tablet, Rfl: 1 metFORMIN (GLUCOPHAGE) 1000 mg tablet, Take 1 tablet (1,000 mg total) by mouth in the morning and 1 tablet (1,000 mg total) in the evening. Take with meals., Disp: 180 tablet, Rfl: 2 semaglutide (OZEMPIC) 0.25 mg or 0.5 mg (2 mg/3 mL) pen injector, Inject 0.5 mg under the skin every 7 days., Disp: 3 mL, Rfl: 0 ALLERGIES Patient has no known allergies. PAST MEDICAL HISTORY Past Medical History: Diagnosis Date Allergic Chronic headache Depression Diabetes mellitus (CMS-HCC) Disease of thyroid gland GERD (gastroesophageal reflux disease) HL (hearing loss) Hyperlipidemia Hypertension Shingles Varicella Visual impairment PAST SURGICAL HISTORY Past Surgical History: Procedure Laterality Date APPENDECTOMY CARDIAC CATHETERIZATION CHOLECYSTECTOMY COLONOSCOPY EGD EYE SURGERY JOINT REPLACEMENT TONSILLECTOMY SOCIAL HISTORY Social History Tobacco Use Smoking status: Never Smokeless tobacco: Never Vaping Use Vaping status: Never Used Substance Use Topics Alcohol use: Yes Comment: Once a year Drug use: Never FAMILY HISTORY Family History Problem Relation Age of Onset Hypertension Mother Hyperlipidemia Mother Hypothyroidism Mother Diabetes Mother Arthritis Mother Diabetes Father Hypothyroidism Father Hypertension Father Heart disease Father Hypothyroidism Sister Diabetes Sister REVIEW OF SYSTEMS Review of Systems Constitutional: Negative for fever and chills. HENT: Aural pressure Eyes: Negative for visual disturbance. Respiratory: Negative for cough and shortness of breath. Cardiovascular: Negative for chest pain and chest discomfort. Gastrointestinal: Negative for nausea and vomiting. Endocrine: Negative for cold intolerance and heat intolerance. Genitourinary: Negative for difficulty urinating. Musculoskeletal: Negative for neck pain and neck stiffness. Skin: Negative for rash. Allergic/Immunologic: Negative for food allergies. Neurological: Negative for seizures. Hematological: Does not bruise/bleed easily. Psychiatric/Behavioral: Negative for confusion. Data Review: Audiogram 03/31/2024: Physicial Exam: Temp 36.6 C (97.9 F) Ht 165.1 cm (5' 5 ) Wt 86.2 kg (190 lb) BMI 31.62 kg/m Constitution: Patient appears healthy, alert, oriented, with their usual voice, communication, and affect Head and Face: Normocephalic and Atraumatic. Facial nerve function normal Eyes: No Strabismus and EOM normal Ear: external ear normal, canal normal, TM normal without fluid or infection, and retraction of the left tympanic membrane appreciated but otherwise healthy. Nose and Nasal Cavity: The external appearance, nasal mucosa, septum, and turbinates are unremarkable without drainage or lesion Oral Cavity: The lips, gums and teeth are unremarkable without mass or lesion. Neck: No asymmetry or mass, thyroid normal, no lymphadenopathy. Salivary glands normal. Cranial Nerves: Cranial nerves intact Procedure: Microscopic Examination Pre Op Diagnosis: Eustachian tube dysfunction Post Op Diagnosis: Same Procedure: Otologic Microscopic Examination Surgeon: Arianna Flynn MD Consent: Verbal Consent was obtained prior to the procedure. Anesthesia: None Complications: none Procedure: In a reclined position, using an otologic microscope, the examination was performed. Findings: See the findings recorded under the physical examination. Pressure Equalization Tube Placement Procedure Pre-operative Diagnosis: Eustachian tube dysfunction Post-operative Diagnosis: Same Procedure: Myringotomy with PE Tube Placement Surgeon: Arianna Flynn MD Anesthetic: Phenol Consent: Verbal Consent was obtain prior to the procedure PET Type: Noah Collar Button Soft Silcone Ear Drops: Ciprodex Findings: Procedure Technique: Under microscopic visualization, the tympanic membrane was inspected. Liquid phenol was applied to the tympanic membrane in a linear fashion covering approximately 3% of the tympanic membrane. An anterior inferior radial incision allowed suctioning of the middle ear and uneventful placement of the pressure equalization tube. Assessment Impression: Eustachian tube dysfunction secondary to descent. Retraction of the left tympanic membrane upon PE. Plan: - Results from audiogram/tympanometry completed prior to today's visit were reviewed. Retraction of the left tympanic membrane noted. - Microscopic examination was completed in office today. The ears appear generally healthy. - Discussed eustachian tube dysfunction and its etiology, symptoms, workup, treatment, and expected outcomes. Patient's questions were answered. - We discussed PE tube placement versus eustachian tube dilation. Indications, risks, benefits, and possible complications were discussed. - We discussed the initiation of Afrin nasal spray an hour prior to descent. Initiate Flonase a week before; Mucinex and Sudafed may be utilized the day of the flight. - Under microscopic visualization, the tympanic membrane was inspected. Liquid phenol was applied to the tympanic membrane in a linear fashion covering approximately 3% of the tympanic membrane. An anterior inferior radial incision allowed suctioning of the middle ear and uneventful placement of the pressure equalization tube. - Initiate swimmer's ear otic drops if snorkeling with PE tubes. - Follow-up as needed. Visit Diagnosis and Orders: Danny was seen today for eustachian tube dysfunction. Diagnoses and all orders for this visit: Other specified disorders of eustachian tube, left ear Fullness in ear, bilateral Dysfunction of both eustachian tubes [H69.93] Seasonal allergic rhinitis due to pollen Mixed conductive and sensorineural hearing loss of left ear with restricted hearing of right ear Scribe Statement Scribed for and in the presence of ARIANNA FLYNN MD by elijah Washington. Provider Statement I ARIANNA FLYNN MD personally performed the services described in the documentation as described by the above named scribe. It is both accurate and complete at the time of final signature. Sierra Rowan MA 03/31/24 0755 Sierra Rowan MA 03/31/24 0755 [facility] Instructions Teresa Lorenzo - 03/31/2024 8:00 AM EDT - Results from audiogram/tympanometry completed prior to today's visit were reviewed. Retraction of the left tympanic membrane noted. - Microscopic examination was completed in office today. The ears appear generally healthy. - Discussed eustachian tube dysfunction and its etiology, symptoms, workup, treatment, and expected outcomes. Patient's questions were answered. - We discussed PE tube placement versus eustachian tube dilation. Indications, risks, benefits, and possible complications were discussed. - We discussed the initiation of Afrin nasal spray an hour prior to descent. Initiate Flonase a week before; Mucinex and Sudafed may be utilized the day of the flight. - Initiate swimmer's ear otic drops if snorkeling with PE tubes. - Follow-up as needed. Contact the office if PE tubes become discomforting. documented in this encounter [employer] 03-31-2024 History of Present illness Narrative AUDIOLOGIC EVALUATION Reason for visit: CC: Danny is here today for a follow up hearing test. She notes both ears continue to feel plugged. Her ears have been plugged since October after a flight to [place]. She denies major changes in her hearing since her test completed on 02/04/24. She is having intermittent tinnitus and otalgia the last week. She hears a crackling in her left ear occasionally. She denies otorrhea and dizziness. She has a flight coming up in May and is concerned about her ears as that is when the fullness began in October. RESULTS: Otoscopic Evaluation: Right Ear: Unremarkable Left Ear: Unremarkable Immittance Measures: Right Ear: Type A Left Ear: Type C Pure Tone Audiometry: Did not repeat today as tympanograms / symptoms did not change RECOMMENDATIONS: Follow up with Dr. Arianna Flynn Retest per otologic management John Valadez, [facility] [employer] documented in this encounter [facility] [employer] 03-03-2024 History of Present illness Narrative Images from the original note were not included. [address] [id number] SUBJECTIVE: Patient ID: Danny Ahmadi is a 58 y.o. female. Chief Complaint Patient presents with Diabetes Danny has changed her diet and is doing well with Ozempic. Tolerating Ozempic well. She on occasion, may have loose stools but doesn't occur every day. Has decreased consumption of sugar soda pop and has been watching her carbohydrates in her diet. Last A1c is 8.5%, is 7.2% today. Diabetes She presents for her follow-up diabetic visit. She has type 2 diabetes mellitus. Her disease course has been improving. There are no hypoglycemic associated symptoms. There are no diabetic associated symptoms. There are no hypoglycemic complications. Symptoms are stable. There are no diabetic complications. Risk factors for coronary artery disease include diabetes mellitus, dyslipidemia, family history, hypertension and obesity. Current diabetic treatment includes oral agent (monotherapy) and insulin injections (Ozempic). She is compliant with treatment all of the time. She is following a generally healthy diet. Meal planning includes avoidance of concentrated sweets and carbohydrate counting. She participates in exercise intermittently. Eye exam is current. Hypertension This is a chronic problem. The current episode started more than 1 year ago. The problem is controlled. Pertinent negatives include no palpitations or shortness of breath. There are no associated agents to hypertension. Risk factors for coronary artery disease include diabetes mellitus, dyslipidemia, family history, obesity and post-menopausal state. Past treatments include calcium channel blockers. The current treatment provides significant improvement. There are no compliance problems. Hypothyroidism Presents for follow-up visit. Patient reports no depressed mood, dry skin or palpitations. The symptoms have been stable. Her past medical history is significant for diabetes and hyperlipidemia. Hyperlipidemia This is a chronic problem. Recent lipid tests were reviewed and are variable. Exacerbating diseases include diabetes, hypothyroidism and obesity. There are no known factors aggravating her hyperlipidemia. Pertinent negatives include no shortness of breath. Current antihyperlipidemic treatment includes statins. The current treatment provides significant improvement of lipids. There are no compliance problems. The following portions of the patient's history were reviewed and updated as appropriate: allergies, current medications, past family history, past medical history, past social history, past surgical history and problem list. Past Surgical History: Procedure Laterality Date APPENDECTOMY CARDIAC CATHETERIZATION CHOLECYSTECTOMY COLONOSCOPY EGD EYE SURGERY JOINT REPLACEMENT TONSILLECTOMY Past Medical History: Diagnosis Date Allergic Chronic headache Depression Diabetes mellitus (CMS-HCC) Disease of thyroid gland GERD (gastroesophageal reflux disease) HL (hearing loss) Hyperlipidemia Hypertension Shingles Varicella Visual impairment Immunization History Administered Date(s) Administered COVID-19, mRNA, LNP-S, PF, 100mcg/0.5mL Dose 06/15/2020, 07/13/2020, 04/13/2021, 10/20/2021 Covid-19, Mrna, Lnp-s, Bivalent, Pf, 30mcg/0.3 ml 03/18/2022 Covid-19,mrna, Lnp-s, Pf, 50mcg/0.5ml 12+ 04/15/2023, 02/29/2024 Influenza (IM) Preservative Free 04/04/2016 Influenza Tri-valent Im, Adult 02/29/2024 Influenza, Injectable, MDCK, Quadrivalent 04/06/2019 Influenza, Injectable, Mdck, Preservative Free, Quad 03/27/2017, 03/11/2018 Influenza, Injectable, Quadrivalent 04/04/2020 Influenza, Injectable, quadrivalent (PF) 04/13/2021 Influenza, Recombinant, Quadrivalent, Injectable, Preserv 03/18/2022 PPD Test 12/14/2015, 02/09/2016, 02/05/2018 Pneumococcal Conjugate 13-Valent 07/11/2017, 09/29/2018 Tdap 03/18/2023 Zoster Vaccine Recombinant 02/21/2018, 04/22/2018 REVIEW OF SYSTEMS: Review of Systems Constitutional: Negative for chills and fever. HENT: Negative. Eyes: Negative for visual disturbance. Respiratory: Negative for chest tightness and shortness of breath. Cardiovascular: Negative for palpitations. Gastrointestinal: Negative. Endocrine: Negative. Genitourinary: Negative for pelvic pain. Musculoskeletal: Negative. Skin: Negative. Allergic/Immunologic: Negative. Neurological: Negative for syncope and facial asymmetry. Hematological: Does not bruise/bleed easily. Psychiatric/Behavioral: Negative. PHYSICAL EXAMINATION: Vitals: 03/03/24 0719 BP: 110/60 BP Site: Right Arm BP Postition: Sitting Pulse: 89 Resp: 16 Temp: 36.6 C (97.9 F) SpO2: 97% Weight: 86.4 kg (190 lb 6.4 oz) Height: 165.1 cm (5' 5 ) Patient noted to have elevated BMI and the following intervention(s) were applied: encouragement to exercise. Physical Exam Vitals and nursing note reviewed. Constitutional: General: She is not in acute distress. Appearance: She is well-developed. She is not diaphoretic. HENT: Head: Normocephalic and atraumatic. Right Ear: Tympanic membrane and external ear normal. Left Ear: Tympanic membrane and external ear normal. Nose: Nose normal. Mouth/Throat: Mouth: Mucous membranes are moist. Pharynx: No oropharyngeal exudate. Eyes: General: Right eye: No discharge. Left eye: No discharge. Conjunctiva/sclera: Conjunctivae normal. Pupils: Pupils are equal, round, and reactive to light. Neck: Thyroid: No thyromegaly. Vascular: No JVD. Cardiovascular: Rate and Rhythm: Normal rate and regular rhythm. Heart sounds: Normal heart sounds. No murmur heard. No friction rub. No gallop. Pulmonary: Effort: Pulmonary effort is normal. Breath sounds: Normal breath sounds. Abdominal: General: Bowel sounds are normal. There is no distension. Palpations: Abdomen is soft. There is no mass. Tenderness: There is no abdominal tenderness. Musculoskeletal: General: Normal range of motion. Cervical back: Normal range of motion and neck supple. Lymphadenopathy: Cervical: No cervical adenopathy. Skin: General: Skin is warm and dry. Capillary Refill: Capillary refill takes less than 2 seconds. Neurological: Mental Status: She is alert and oriented to person, place, and time. Deep Tendon Reflexes: Reflexes are normal and symmetric. Psychiatric: Mood and Affect: Mood normal. Behavior: Behavior normal. Thought Content: Thought content normal. Judgment: Judgment normal. ASSESSMENT/PLAN: Danny was seen today for diabetes. Diagnoses and all orders for this visit: Type 2 diabetes mellitus without complication, with long-term current use of insulin ([facility]) - POCT Hemoglobin A1c Vitamin D deficiency - ergocalciferol (DRISDOL) 1,250 mcg (50,000 unit) capsule; Take 1 capsule (50,000 Units total) by mouth once a week. Acquired hypothyroidism - levothyroxine (SYNTHROID, LEVOTHROID) 150 MCG tablet; Take 1 tablet (150 mcg total) by mouth in the morning. Essential hypertension Mixed hyperlipidemia Reactive depression Type 2 DM A1c 7.2%, was 8.5% Has been working on her diet Continue Ozempic 0.5 mg weekly. One sample box provided today -Tresiba 38 units subcutaneous daily -Metformin 1,000 mg oral twice daily Encourage routine home blood sugar monitoring, diet modification, and exercise regimen. Yearly eye exams or as directed by eye provider Daily self skin checks Is taking statin HTN Controlled 110/60 Continue amlodipine 10 mg oral daily. Losartan 100 mg oral daily. Acquired hypothyroidism TSH 1.07 Continue levothyroxine 150 mcg oral daily Depression Depression: Not at risk (03/03/2024) PHQ-2 PHQ-2 Score: 0 Stable. Continue Celexa 40 mg oral daily Mixed hyperlipidemia Continue atorvastatin 40 mg oral daily Vitamin D deficiency Continue D3 50,000 units oral weekly Body mass index is 31.68 kg/m . Patient noted to have elevated BMI and the following intervention(s) were applied: Discussed current weight today. Consider healthy food choices, portion control. Avoid sugary beverages and high concentrated sweets. Routine exercise regimen encouraged. ALL QUESTIONS ANSWERED Total time spent was 30 minutes: Preparing to see the patient (e.g., review of tests) Obtaining and/or reviewing separately obtained history Performing a medically appropriate examination and/or evaluation Counseling and educating the patient/family/caregiver Ordering medications, tests, or procedures Follow-up: 4 months DM HTN LEATHA Shah 03/03/24 0840 documented in this encounter [facility] 09-25-2023 History of Present illness Narrative The OARRS/MAPPS database was reviewed today and found to be appropriate. No indication of medication diversion, or non compliance. LEATHA Shah 09/25/23 1605 documented in this encounter [facility] 08-22-2023 Miscellaneous Notes PATIENT WANTS 90 DAYS PLEASE documented in this encounter [facility] 08-22-2023 Telephone encounter Note PATIENT WANTS 90 DAYS PLEASE [facility] 06-10-2023 History of Present illness Narrative The OARRS/MAPPS database was reviewed today and found to be appropriate. No indication of medication diversion, or non compliance. MAGALY Vieira 06/10/23 1132 documented in this encounter [facility] Evaluation note Diagnosis Yeast vaginitis- Primary [facility] Diagnosis Type 2 diabetes mellitus without complication, with long-term current use of insulin ([facility] Primary [facility] Diagnosis Vitamin D deficiency [facility] Diagnosis Type 2 diabetes mellitus without complication, with long-term current use of insulin ([facility])- Primary Vitamin D deficiency Acquired hypothyroidism Unspecified hypothyroidism Essential hypertension Unspecified essential hypertension Mixed hyperlipidemia Reactive depression [facility] Diagnosis Other specified disorders of eustachian tube, left ear- Primary Fullness in ear, bilateral [facility] Diagnosis Other specified disorders of eustachian tube, left ear- Primary Fullness in ear, bilateral Dysfunction of both eustachian tubes [H69.93] Seasonal allergic rhinitis due to pollen Mixed conductive and sensorineural hearing loss of left ear with restricted hearing of right ear [facility] Diagnosis Post-menopausal bleeding- Primary Postmenopausal bleeding Normal gynecologic examination Uterine prolapse Uterine prolapse without mention of vaginal wall prolapse Fibroid Leiomyoma of uterus, unspecified documented in this encounter [facility]* Diagnosis Yeast vaginitis- Primary Type 2 diabetes mellitus without complication, with long-term current use of insulin ([facility]) documented [facility]* Diagnosis Acquired hypothyroidism Unspecified hypothyroidism Reactive depression documented [facility]* Diagnosis Post-menopausal bleeding Postmenopausal bleeding documented in this encounter [facility]* Diagnosis Type 2 diabetes mellitus without complication, with long-term current use of insulin ([facility]) documented in this [facility]* Diagnosis Type 2 diabetes mellitus without complication, with long-term current use of insulin ([facility]) documented [facility]* Diagnosis Post-menopausal bleeding- Primary Postmenopausal bleeding documented in this encounter [facility]* Diagnosis Hyperlipidemia, unspecified hyperlipidemia type documented in this encounter [facility]* Diagnosis Preop examination Unspecified pre-operative examination Postmenopausal bleeding documented in this encounter [facility]* Diagnosis Hyperlipidemia, unspecified hyperlipidemia type documented in this encounter [facility]* Diagnosis Hyperlipidemia, unspecified hyperlipidemia type documented in this [facility]* Diagnosis Class 1 obesity due to excess calories with serious comorbidity and body mass index (BMI) of 31.0 to 31.9 in adult documented in this [facility]* Diagnosis Special screening for malignant neoplasm of colon- Primary Special screening for malignant neoplasms, colon [facility] filed[facility]ed [facility] filedocumented in this encounter [facility] filedocumented in this encounter [facility] filedocumented in [facility]* Attachments The following attachments cannot be sent through Care Everywhere. * Hypothyroidism (underactive thyroid) ([place]) [facility]ructionsNot on file documented in this encounter[facility] SystemInstructionsNot on file documented in this encounter[facility] SystemInstructionsNot on file documented in this [facility] System[facility]ructionsNot on file documented in this encounter[facility] SystemInstructionsNot on file documented in this encounter[facility] SystemInstructionsNot on file documented in this [facility] SystemInstructionsNot on file documented in this [facility] SystemInstructionsNot on file [facility] in [facility] Purpose Family History No Family History Records FoundNo Family History Records FoundNo Family History Records FoundNo Family History Records FoundNo Family History Records FoundNo Family History Records FoundNo Family History Records Found Advance Directives No Advanced Directives Records FoundNo Advanced Directives Records FoundNo Advanced Directives Records FoundNo Advanced Directives Records FoundNo Advanced Directives Records FoundNo Advanced Directives Records FoundNo Advanced Directives Records Found Additional Source Comments INFORMATION SOURCE (unrecogn ized section and content) DATE CREATED AUTHOR [facility]/25/2020 [facility] DATE CREATED AUTHOR AUTHOR'S ORGANIZ ATION 01/28/2022 [facility] DATE CREATED AUTHOR AUTHOR'S ORGANIZ ATION 01/28/2022 [facility] DATE CREATED AUTHOR AUTHOR'S ORGANIZ ATION 02/04/2024 [facility] DATE CREATED AUTHOR AUTHOR'S ORGANIZ ATION 04/01/2024 [facility] DATE CREATED AUTHOR AUTHOR'S ORGANIZ ATION 06/20/2024 [facility] d[facility] Specialists EPIC DATE CREATED AUTHOR AUTHOR'S ORGANIZ ATION 07/08/2024 [facility] Care Teams (unrecognized sec tion and content) Director Clinical Pharmacology Relationship Specialty Start Date End Date Akiko Villa [facility] [address] [place] [address] PCP - General 04/01/17 Director Clinical Pharmacology Relationship Specialty Start Date End Date Akiko Villa, [facility] [address] [place] [address] PCP - General 04/01/17 Director Clinical Pharmacology Relationship Specialty Start Date End Date Akiko Villa, [facility] [address] [place] [address] PCP - General 04/01/17 Director Clinical Pharmacology Relationship Specialty Start Date End Date Dickson Tafoya [facility] [address] [place] [address] PCP - General Family Medicine 08/22/23 Director Clinical Pharmacology Relationship Specialty Start Date End Date Dikcson Tafoya [facility] [address] [place] [address] PCP - General Family Medicine 08/22/23 Director Clinical Pharmacology Relationship Specialty Start Date End Date Dickson Tafoya [facility] [address] [place] [address] PCP - General Family Medicine 08/22/23 Director Clinical Pharmacology Relationship Specialty Start Date End Date Dickson Tafoya [facility] [address] [place] [address] PCP - General Family Medicine 08/22/23 Director Clinical Pharmacology Relationship Specialty Start Date End Date Dickson Tafoya [facility] [address] [place] [address] PCP - General Family Medicine 08/22/23 Director Clinical Pharmacology Relationship Specialty Start Date End Date Milton Brizuela MD [address], [place] [address] [place] [address] PCP - General Family Medicine 11/22/23 Director Clinical Pharmacology Relationship Specialty Start Date End Date Milton Brizuela MD [address], [address] [place] [address] PCP - General Family Medicine 11/22/23 Director Clinical Pharmacology Relationship Specialty Start Date End Date Dickson Tafoya [facility] [address] [place] [address] PCP - General Family Medicine 08/22/23 Director Clinical Pharmacology Relationship Specialty Start Date End Date Dickson Tafoya [facility] [address] [place] [address] PCP - General Family Medicine 08/22/23 Director Clinical Pharmacology Relationship Specialty Start Date End Date Milton Brizuela MD [address], [place] [address] [place] [address] PCP - General Family Medicine 11/22/23 Director Clinical Pharmacology Relationship Specialty Start Date End Date Milton Brizuela MD [address], [address] [place] [address] PCP - General Family Medicine 11/22/23 Director Clinical Pharmacology Relationship Specialty Start Date End Date Dickson Tafoya [facility] [address] [place] [address] PCP - General Family Medicine 08/22/23 Director Clinical Pharmacology Relationship Specialty Start Date End Date Dickson Tafoya [facility] [address] [place] [address] PCP - General Family Medicine 08/22/23 Director Clinical Pharmacology Relationship Specialty Start Date End Date Milton Brizuela MD [address], [place] [address] [place] [address] PCP - General Family Medicine 11/22/23 Director Clinical Pharmacology Relationship Specialty Start Date End Date Dickson Tafoya [facility] [address] [place] [address] PCP - General Family Medicine 08/22/23 Director Clinical Pharmacology Relationship Specialty Start Date End Date Milton Brizuela MD [address], [place] [address] PCP - General Family Medicine 11/22/23 Director Clinical Pharmacology Relationship Specialty Start Date End Date Milton Brizuela MD [address], [address] [address] [place] [address] PCP - General Family Medicine 11/22/23 Director Clinical Pharmacology Relationship Specialty Start Date End Date Milton Brizuela MD [address], [address] [place] [address] PCP - General Family Medicine 11/22/23 Director Clinical Pharmacology Relationship Specialty Start Date End Date Dickson Tafoya, [facility] [address] [facility] [place] [address] PCP - General Family Medicine 08/22/23 Director Clinical Pharmacology Relationship Specialty Start Date End Date Akiko Villa, [facility] [address] [place] [address] PCP - General 04/01/17 Director Clinical Pharmacology Relationship Specialty Start Date End Date Akiko Villa, [facility] [address] [place] [address] PCP - General 04/01/17 Reason for Visit (unrecogniz ed section and content) Reason Comments Med Refill Reason Onset Date Comments Med Refill 07/23/2023 Reason Onset Date Comments Med Refill 08/22/2023 Reason Onset Date Comments Med Refill 09/04/2023 Reason Comments Diabetes Reason Comments Eustachian tube dysfunction Reason Comments Post menopausal bleeding Pt present toda y for Post menopausal bleeding. Referral from Tracee Naqvi. Specialty Diagnoses / Procedures Referred By Alex t Referred To Contact Obstetrics and Gynecology Diagnoses Post-menopausal bleeding Procedures HI OFFICE/OUTPATIENT [facility] 60 MINUTES Dickson Naqvi, CNKevin [address] [place] [address] Phone: tel: fax: Toi Valadez [address] [place] [address] Phone: tel: fax: Referral ID Status Reason Start Date Expiration Date Visits Requested Visits Authorized [id number] Pending Review Specialty Services Required 04/08/2024 10/05/2024 1 1 Reason Onset Date Comments Med Refill 05/05/2024 Reason Onset Date Comments Med Refill 09/23/2023 FOR RECORDS PERTAINING TO PATIENTS WHO ARE OR HAVE BEEN ENROLLED IN A CHEMICAL DEPENDENCY/SUBSTANCEABUSE PROGRAM, SOME INFORMATION MAY BE OMITTED. This clinical summary was aggregated from multiple sources. Caution should be exercised in using it in the provision of clinical care. This summary normalizes information from multiple sources, and as a consequence, information in this document may materially change the coding, format and clinical context of patient data. In addition, data may be omitted in some cases. CLINICAL DECISIONS SHOULD BE BASED ON THE PRIMARY CLINICAL RECORDS. [facility]. provides no warranty or guarantee of the accuracy or completeness of information in this document.
[2024-07-17 06:32] LABS: Basophils Percent Auto 0.4 % (0.2-2.0); Eosinophils Absolute Auto 0.1 10^3/uL (0.0-0.7); Eosinophils Percent Auto 2.2 % (0.9-7.0); Hemoglobin 12.7 g/dL (12.0-16.0); Immature Granulocytes Abs Auto 0.01 10^3/uL (0.00-0.03); Immature Granulocytes Pct Auto 0.2 % (0.0-0.5); Lymphocytes Absolute Auto 1.6 10^3/uL (1.2-3.8); Lymphocytes Percent Auto 28.3 % (20.5-60.0); Mean Corpuscular HGB Conc 32.6 g/dL (29.9-35.2); Mean Corpuscular Hemoglobin 29.3 pg (26.7-34.0); Mean Corpuscular Volume 90.1 fL (81.0-99.0); Mean Platelet Volume 10.3 fL (9.5-13.5); Monocytes Absolute Auto 0.4 10^3/uL (0.3-0.8); Monocytes Percent Auto 7.4 % (1.7-12.0); Neutrophils Absolute Auto 3.4 10^3/uL (1.4-6.5); Neutrophils Percent Auto 61.5 % (43.0-75.0); Platelet Count 179 10^3/uL (150-450); Red Blood Count 4.33 10^6/uL (4.20-5.40); Red Cell Distribution Width 12.4 % (11.0-15.0); White Blood Count 5.5 10^3/uL (4.0-11.0)
[2024-07-17 06:52] LABS: Glucometer 196 mg/dL (74-106)
[2024-07-17 06:58] VITALS: BP 150/83; PULSE 86; TEMP 36.2; O2SAT 96; BMI 32.3
[2024-07-17] MEDS: LACTATED RINGER'S SOLUTION 1,000 ML 50 ML IV (07:14)
--- NOTE | 2024-07-17 08:13 | PM.ONB ---
Brief Operative Note Date of procedure: 07/17/24 Pre-op diagnosis general: pmb Post-op diagnosis: same as pre-op Procedure: NAME OF PROCEDURE: [ D&c hysteroscopy with myosure] PROCEDURE: The patient was taken back to the Operating Room where she was prepped and draped in normal sterile fashion after being placed under general anesthesia without difficulty. She was also placed in the dorsal lithotomy position. A weighted speculum was placed in the patient?s vagina. The anterior lip of the cervix was identified and grasped with a single tooth tenaculum. The patient?s uterus was then sounded roughly to [? 8] cm. The patient was then gently dilated using Hegar dilators. The hysteroscope was passed through the patient?s cervix into the uterus. Both ostia were identified. fluffy appearing endometrium. No gross evidence of malignancy, no gross evidence of polyps or fibroids. The myosure apparatus was placed through the scope, The myosure was engaged and endometrial curretting were removed along with endometrial polyp, The hysteroscope was then removed from the uterus. The endometrial curettings were sent out to pathology. The single tooth tenaculum was then removed from the patient's anterior lip of the cervix where excellent hemostasis was noted. All instruments were removed from the patient?s vagina. The patient tolerated the procedure well. Sponge, lap and needle counts were correct times two. The patient was taken to the Recovery Room in stable condition.Room in stable condition. Anesthesia: MAC Surgeon: Toi Valadez Estimated blood loss (mL): 5 Pathology: other (endometrial currettings) Condition: stable Disposition: PACU Urinary Catheter Management Urinary Catheter Management Straight: Cath placed during this visit: no
[2024-07-17 08:16] VITALS: BP 154/80; PULSE 97; TEMP 36.4; O2SAT 92
[2024-07-17 08:31] VITALS: BP 141/72; PULSE 94; TEMP 36.4; O2SAT 95
[2024-07-17 08:46] VITALS: BP 142/80; PULSE 89; O2SAT 93
[2024-07-17 09:16] VITALS: BP 134/77; PULSE 85; O2SAT 92
[2024-07-17 09:46] VITALS: BP 124/79; PULSE 87; O2SAT 95
== END 2024-07-17 10:05 | disposition home or self-care (01) ==
PROVIDERS: PCP Internal Medicine; Visit Provider Obstetrics & Gynecology
PROC: (CPT 952; principal; 2024-07-17 07:30)
DX: N95.0 Postmenopausal bleeding (principal); D25.9 Leiomyoma of uterus, unspecified; N84.0 Polyp of corpus uteri; Z90.49 Acquired absence of other specified parts of digestive tract; E78.5 Hyperlipidemia, unspecified; I10 Essential (primary) hypertension; G35 Multiple sclerosis; K21.9 Gastro-esophageal reflux disease without esophagitis; E11.9 Type 2 diabetes mellitus without complications; Z79.84 Long term (current) use of oral hypoglycemic drugs; Z79.85 Long-term (current) use of injectable non-insulin antidiabetic drugs; E03.9 Hypothyroidism, unspecified
CPT/HCPCS: 58558; 36415; 82948; 85025; 88305; J1100; J1885; J2250; J2405; J2704; J3010